=== PATIENT | female | born 1965 | race African-American/Black ===

== ENCOUNTER 2017-08-02 21:48 | Inpatient (IN) | payer OTHER ==
[2017-08-02] MEDS ORDERED: Labetalol HCl 100 MG/20 ML VIAL ONE (22:14)
--- NOTE | 2017-08-03 00:01 | NM ---
VENTILATION PERFUSION LUNG SCAN: Date: 08-02-17 Comparison: None. History: Chest pain, dyspnea. Assess for pulmonary embolism. Technique: Following the inhalation of 12 mCi Xenon 133 gas by facemask, ventilation imaging was obta ined. Perfusion imaging is obtained following the intravenous administration of 6 mCi Technetium 99M labelled MAA. FINDINGS: The ventilation imaging demonstrates normal wash in, equilibrium, and washout phase ventilation imagi ng. The perfusion images demonstrates subtle peripheral areas of decreased perfusion in the left perihila r region in the lateral aspect of the mid right lung zone. The area of decreased perfusion in the lef t perihilar region is likely vascular in nature. The area of decreased peripheral perfusion within th e right lung base laterally may represent a subsegmental mismatched defect. IMPRESSION: Low probability for PE. Possible small subsegmental perfusion defect in right lung base - otherwise u nremarkable. POS: [facility]
[2017-08-03 02:09] LABS: Troponin I 0.012 ng/mL (< 0.028)
[2017-08-03] MEDS ORDERED: hydrALAZINE 20 MG/ML VIAL SLOW IVP PRN (02:46)
[2017-08-03] MEDS ORDERED: Amlodipine 10 MG TAB PO SCH (02:46)
[2017-08-03] MEDS ORDERED: Ondansetron ODT 4 MG TAB PO PRN (02:46)
[2017-08-03] MEDS ORDERED: Acetaminophen 325 MG TAB PO PRN (02:46)
[2017-08-03 05:20] LABS: #Basophils 0.1 thou/uL (0.0-0.2); #Eosinphils 0.6 thou/uL (0.0-0.7); #Lymphocytes 3.4 thou/uL (1.20-3.40); #Monocytes 0.4 thou/uL (0.11-0.59); #Neutrophils 6.6 thou/uL (1.40-6.50); %Basophils 0.8 % (0.0-1.0); %Eosinophils 5.5 % (0.0-10.0); %Lymphocytes 30.6 % (21.0-51.0); %Monocytes 3.8 % (0.0-10.0); %Neutrophils 59.3 % (42.0-75.0); Hemoglobin 8.1 g/dL (12.0-16.0); Mean Corpuscular HGB CONC 33.4 g/dL (32.0-36.0); Mean Corpuscular Hemoglobin 29.2 pg (27.0-31.0); Mean Corpuscular Volume 87.3 fl (81.0-99.0); Mean Platelet Volume 8.1 fL (7.4-10.4); Platelet Count 133 thou/uL (130-400); RBC Distribution Width 14.1 % (11.5-14.5); Red Blood Cell (RBC) Count 2.78 mill/uL (4.20-5.40); White Blood Cell (WBC) Count 11.1 thou/uL (4.8-10.8)
[2017-08-03 05:29] LABS: ALT (SGPT) 77 U/L (8-55); AST (SGOT) 42 U/L (5-34); Albumin 3.6 g/dL (3.5-5.0); Alkaline Phosphatase 138 U/L (40-150); Anion Gap 16 mmol/L (10-20); BUN (Urea Nitrogen) 42 mg/dL (9.8-20.1); Bilirubin, Total 0.4 mg/dL (0.2-1.2); Calc. Creatinine Clearance 16 mL/min (70-130); Calcium 10.2 mg/dL (7.8-10.44); Carbon Dioxide 23 mmol/L (22-29); Cardiac Risk 7.1 (Less than 4.5); Chloride 104 mmol/L (98-107); Cholesterol 157 mg/dl (< 200 Desired); Estimated GFR-MDRD 11; Globulin 3.3 g/dL (2.4-3.5); Glucose 145 mg/dL (70-105); HDL Cholesterol 22 mg/dL (>60 Neg Risk); LDL Cholesterol, Calculated 97 mg/dL; Magnesium 2.1 mg/dL (1.6-2.6); Potassium 3.7 mmol/L (3.5-5.1); Protein, Total 6.9 g/dL (6.0-8.3); Sodium 139 mmol/L (136-145); Triglycerides 191 mg/dL (Less than 150)
--- NOTE | 2017-08-03 06:06 | HP ---
DATE OF ADMISSION: 08/03/2017 TIME OF SERVICE: PRIMARY CARE PHYSICIAN: Kavita Mata D.O. CHIEF COMPLAINT: Shortness of breath. HISTORY OF PRESENT ILLNESS: Ms. Toney is a 51-year-old -[place] female with history of hypert ension and chronic kidney disease stage 3-4, who presented to the emergency department on 08/02 for e valuation of shortness of breath. She states she had a coughing and phlegm production for 3-4 days and developed pain under her right b reast around her right side of her chest that was worse with deep inspiration and with coughing. She presented to the emergency department, was found to be hypoxic there. The records are 90% on room a ir, where I was told low 80s. On arrival to our unit, she was satting in the low 80s on room air. S he had an increased respiratory rate and was subsequently sent here for evaluation. On arrival here, she continued to have increased blood pressure as in [place]. They were concerned about a pulmonary embolus due to elevated D-dimer and was started on a heparin drip at the outside [facility] and continued here initially. VQ scan was obtained that was a low probability, so the heparin drip was stopped on her admission. She denies any fevers or chills, no nausea, vomiting, diarrhea, constipation. Appetite has been okay . Talking to better medical problems and medications, it is very clear that she takes her medicines may be 25% of the time and has had a known history of chronic kidney problems for at least the last 2 yea rs, has not done anything about it. PAST MEDICAL HISTORY: 1. Hypertension. 2. Chronic kidney disease stage 4. 3. Obesity. PAST SURGICAL HISTORY: , remotely. HOME MEDICATIONS: 1. Lisinopril 10 mg p.o. q.a.m. 2. Metoprolol tartrate 50 mg p.o. b.i.d. 3. Iron sulfate 325 mg during her cycles. ALLERGIES: NKDA. FAMILY HISTORY: Significant for mom with diabetes, hypertension, and son who is hypertensive. SOCIAL HISTORY: Negative for habits x2. She has about half a can of sweet snuff for week. 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 She takes her home medications may be 25% of the time. REVIEW OF SYSTEMS: A 10-point review of systems was performed, negative for all systems except that as per HPI. PHYSICAL EXAMINATION: VITAL SIGNS: Temperature at the outside facility 99.4, pulse 84, blood pressure 194/124 respiratory 18, satting 99% on 2 liters. Here and then at the outside facility, she is 98.3, pulse of 110, blood pressure 200/113, respiratory rate is satting 90% on room air. GENERAL: She is awake. She is alert. She is oriented x3. She is a well-developed, obese -A merican female, who appears to be in no acute distress and seems distracted and not really less than what we were saying. HEENT: Normocephalic and atraumatic. Pupils equal, round, react to light bilaterally, mucous membra jeanna are moist. She has no visible lesions. No thrush. NECK: Supple, without lymphadenopathy, JVD, or thyromegaly. LUNGS: Clear anteriorly. She has no wheezes, no rales, or rhonchi. She has good air with symmetric al chest excursion. CARDIOVASCULAR: She is normal cardiac and regular. Normal S1 and S2. No S3 or S4. I do not apprec iate murmurs. ABDOMEN: Obese. It is nontender, nondistended. She has no masses, organomegaly. No rebound, rigid ity, or guarding. EXTREMITIES: Show no cyanosis, no clubbing with trace bilateral lower extremity edema to just above the ankles. She has 1+ dorsalis pedis, and posterior tibial pulses bilaterally. SKIN: Warm, moist, well perfused. She has no rash or lesions. NEUROLOGIC: Cranial nerves II through XII are grossly intact. She has no focal neurologic deficits, 5/5 strength, and a normal speech pattern. MUSCULOSKELETAL: Normal to inspection. Her large joints are without inflammation. There is no palp able effusions. LABORATORY DATA: Sodium 142, potassium 3.8, chloride 104, bicarb 22, BUN 41, creatinine 5.09 from 3. 5 back 2 years ago, glucose of 98, and a calcium of 10.4. Liver functions showed an AST of 47, ALT of 88, but otherwise within normal limits. CBC showed a [facility] te count barely elevated at 11.4, hemoglobin 9.3, hematocrit of 27.3, and platelet count 155,000. RADIOGRAPHIC STUDIES: She had a chest x-ray showed no acute cardiopulmonary disease. VQ scan was low probability for pulmonary embolus. ASSESSMENT AND PLAN: 1. Hypertensive urgency: Blood pressures in the 200s to 190s over 110s to 120s. We will place in o bservation, will stay away from lisinopril due to kidney function. I will start her on amlodipine an d Coreg. We have p.r.n. hydralazine as needed. If she may need to be on hydralazine as well, I have consulted Nephrology for their assistance. 2. Chronic kidney disease stage 4. Creatinine is 5.09. Calculated GFR is around 11. I will follow up on Dr. Quiñones's recommendations. This is not a new finding. I have now ordered an ultrasound d ue to that. 3. Essential hypertension, unsure of this essential hypertension or renovascular, we will follow up on Nephrology recommendations. In the meantime, we will stay away from lisinopril, which she is not taking regularly anyways. 4. Iron deficiency anemia, chronic. The patient has been on iron sulfate kind of as needed. Hemogl obin is 9.3 with a hematocrit of 27.3. We will watch very closely. 5. History of medical noncompliance. The patient has not been going to doctors or taking her medici jeanna regularly. We will follow up on her response to the medicines we have ordered for her.
[2017-08-03 07:01] LABS: CKMB 0.3 ng/mL (0-6.6); Troponin I 0.014 ng/mL (< 0.028)
[2017-08-03] MEDS: Carvedilol 6.25 MG TAB PO SCH ×2 (09:53→16:47)
[2017-08-03] MEDS: Famotidine 20 MG TAB PO SCH (09:53)
--- NOTE | 2017-08-03 11:56 | PDOC.EVN ---
Event Note - Event Note Event Note: Pt admitted early this morning VS: Stable c/o some PE: Awake, alert CVS: S1S2 PRESENT, RRR, No murmur RS: No wheezing, no rhonchi, diminished at bases GI: Soft, nttp, no guarding PLATINUM SMITH: Awake, alert labs: Reviewed A/P: 1. HTN uncontrolled 2. Hypoxia 3. CKD stage 4 plan: bp improved neph consulted will consult pulmonary to evaluate patint, vq scan low probability for pe case d/w pt & CM
[2017-08-03] MEDS: HYDROcodone/Acetaminophen 5/325 mg Tablet PO PRN (13:30)
[2017-08-03 13:31] LABS: CKMB 0.3 ng/mL (0-6.6); Troponin I 0.031 ng/mL (< 0.028)
--- NOTE | 2017-08-03 13:46 | CON ---
DATE OF CONSULTATION: 08/03/2017 HISTORY: The patient is a 51-year-old female. We are being consulted regarding her difficulty breathing. The patient is a lifelong nonsmoker who about 3 days ago developed some right- sided chest pain, worse with deep breathing and coughing along with a left infraclavicular area pain and discomfort when she coughed and took a deep breath. She has noticed swelling in the right infrahilar area. She has not fallen down. 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 She had a chest x-ray taken in [place], [place], which was normal. She had a perfusion lung scan done over here because her renal function is poor, it showed no evidence of pulmonary emboli. She has not had any coughing or wheezing. No previous history of TB, no bronchial asthma. Prior to recent illness of 3 days, she says she could walk about a block without getting markedly short of breath. Now she can barely walk even 20 feet without getting dyspneic and weak. PAST MEDICAL HISTORY: Pertinent apparently for hypertension and renal disease. PAST SURGICAL HISTORY: Gallbladder, hysterectomy, . SOCIAL/FAMILY HISTORY: Family history is unremarkable. No alcohol or tobacco abuse. REVIEW OF SYSTEMS: Ten point negative. PHYSICAL EXAMINATION: GENERAL: She appears to be in no acute distress at rest. VITAL SIGNS: Her sats were low at 91 on 1 liter, temperature 98, pulse 80, blood pressure 140/89. CHEST: Reveals no wheezing or crackles. CARDIAC: Normal S1, S2. No gallops. ABDOMEN: Soft. No masses. LABORATORY: White count 11,000, H&H 8 and 24, platelet count 133. BUN and creatinine are 42 and 4.9. BNP 198. IMPRESSION: 1. Hypoxemia with normal chest x-ray, normal VQ scan. 2. Chronic renal failure. 3. Left infraclavicular soft tissue mass, unknown significance. PLAN: I am concerned about the management of her hypoxemia with a nonsmoker with normal chest x-ray, no evidence of pulmonary emboli. It is possible this may be due to fluid overload, though she clearly has no other symptoms of fluid overload. I will order an echo. Additionally, order PFT. Regarding the right chest wall mass may consider getting an opinion from Surgery to see whether this could be needled to get a biopsy, it appears suspicious. She has lost about 30 pounds. I will follow. consult note 70 minutes 50% direct pt care MARIA TERESA
--- NOTE | 2017-08-03 13:46 | CON ---
DATE OF CONSULTATION: 08/03/2017 CONSULTING PHYSICIAN: Dr. Julio Tapia. REASON FOR CONSULTATION: Chronic kidney disease. REASON FOR ADMISSION: Shortness of breath. HISTORY OF PRESENT ILLNESS: This is a 51-year-old female with history of hypertension, chronic kidney disease, who came to the hospital with the above complaints and found to have chronic kidney disease. The patient is aware of, but does not want to see a kidney doctor yet. She denies any nausea, vomiting, no shortness of breath or chest pain. She is feeling much better, no shortness of breath, no chest pain or palpitation. PAST MEDICAL HISTORY: Positive for hypertension, chronic kidney disease stage 4 , Obesity. PAST SURGICAL HISTORY: . HOME MEDICATIONS: Lisinopril, metoprolol, and iron sulfate. ALLERGIES: No known drug allergies. SOCIAL HISTORY: No smoking, alcohol or illicit drug abuse, uses snuff. FAMILY HISTORY: Positive for diabetes and hypertension. REVIEW OF SYSTEMS: The following complete review of systems was negative, unless otherwise mentioned in the HPI or below: Constitutional: Weight loss or gain, ability to conduct usual activities. Skin : Rash, itching. Eyes: Double vision, pain. ENT/Mouth: Nose bleeding, neck stiffness, pain, tenderness. Cardiovascular: Palpitations, dyspnea on exertion, orthopnea. Respiratory: Shortness of breath, wheezing, cough, hemoptysis, fever or night sweats. Gastrointestinal: Poor appetite, abdominal pain, heartburn, nausea, vomiting, constipation, or diarrhea. Genitourinary: Urgency, frequency, dysuria, nocturia. Musculoskeletal: Pain, swelling. Neurologic/Psychiatric: Anxiety, depression. Allergy/Immunologic: Skin rash, bleeding tendency. PHYSICAL EXAMINATION: GENERAL: This is a well-built -[place]id[place] female in no apparent distress. VITAL SIGNS: Temperature 98.6, pulse 94, respiratory rate 16, and blood pressure 143/84. Musculoskeletal : No tenderness, No edema HEENT: Atraumatic normocephalic Neck: Supple Cardiovascular: S1S2 heard, Rate and rhythm regular Respiratory: Clear to auscultation Gastrointestinal: Abdomen is soft Dermatologic : No skin rash Neurologic: Alert and awake and oriented X3 No focal neurologic deficits. Moving all the extremities. Psychiatric: Mood and affect normal LABORATORY DATA: Potassium is 3.7, BUN is 42, creatinine is 4.9. ASSESSMENT AND PLAN: 1. Acute kidney injury on chronic kidney disease stage 4-5. We will monitor, most likely from hypertension. 2. Hypertension. Blood pressure seems to be getting better. 3. We will check for proteinuria. We will check chronic kidney disease labs. 4. Anemia. Check iron studies and might need Epogen. 5. Edema, controlled. We will check. 6. Plan is to check chronic kidney disease labs, we will follow. Thank you for the consult. MARIA TERESA
[2017-08-03 14:44] LABS: Creatinine, Urine 49.91 mg/dL (47-110)
--- NOTE | 2017-08-03 15:54 | CT ---
CT OF THE THORAX WITHOUT IV CONTRAST: Date: 08/03/17 INDICATION: Chest wall mass with pain and palpable abnormality left upper chest for 2-3 days. Hurts when patient coughs. FINDINGS: There is a lobulated soft tissue mass seen within the upper inner aspect of the left breast measuring 1.7 cm. There is an enlarged lymph node measuring 1.7 cm. There is mild scattered emphysema. There is a 6.0 mm pulmonary nodule within the left lower lobe on i mage 46 of series 3 and image 81 of series 601. No additional suspicious pulmonary nodule is evident. There are patchy areas of lucency involving the ribs, clavicles, scapula and thoracolumbar spine susp icious for osseous metastatic disease. No definite pathologic fracture is evident. IMPRESSION: 1. Left breast mass with left breast axillary lymphadenopathy suspicious for left breast malignancy with regional lymph node spread. Diagnostic mammogram with ultrasound is recommended for further zeinab acterization. 2. Findings suspicious for diffuse osseous metastatic disease involving thoracolumbar spine, ribs, s capula, and clavicles. 3. Small pulmonary nodule within the left lower lobe measuring up to 6.0 mm. This is nonspecific. Pu lmonary metastatic disease not excluded. 4. Emphysema. CODE T. POS: [facility]
[2017-08-03 19:37] LABS: CKMB 0.3 ng/mL (0-6.6); Troponin I Less than 0.010 ng/mL (< 0.028)
[2017-08-04] MEDS: HYDROcodone/Acetaminophen 5/325 mg Tablet PO PRN (04:10)
[2017-08-04 04:54] LABS: #Eosinphils 0.6 thou/uL (0.0-0.7); #Lymphocytes 3.1 thou/uL (1.20-3.40); #Monocytes 0.9 thou/uL (0.11-0.59); #Neutrophils 6.8 thou/uL (1.40-6.50); %Basophils 0.3 % (0.0-1.0); %Eosinophils 5.6 % (0.0-10.0); %Monocytes 7.7 % (0.0-10.0); %Neutrophils 59.4 % (42.0-75.0); Hemoglobin 8.7 g/dL (12.0-16.0); Mean Corpuscular HGB CONC 34.2 g/dL (32.0-36.0); Mean Corpuscular Hemoglobin 29.4 pg (27.0-31.0); Mean Corpuscular Volume 86.2 fl (81.0-99.0); Mean Platelet Volume 7.8 fL (7.4-10.4); Platelet Count 135 thou/uL (130-400); RBC Distribution Width 13.9 % (11.5-14.5); Red Blood Cell (RBC) Count 2.95 mill/uL (4.20-5.40); White Blood Cell (WBC) Count 11.5 thou/uL (4.8-10.8)
[2017-08-04 05:03] LABS: ALT (SGPT) 84 U/L (8-55); AST (SGOT) 48 U/L (5-34); Albumin 3.9 g/dL (3.5-5.0); Alkaline Phosphatase 150 U/L (40-150); Anion Gap 16 mmol/L (10-20); BUN (Urea Nitrogen) 42 mg/dL (9.8-20.1); Bilirubin, Total 0.6 mg/dL (0.2-1.2); Calc. Creatinine Clearance 16 mL/min (70-130); Carbon Dioxide 19 mmol/L (22-29); Chloride 106 mmol/L (98-107); Estimated GFR-MDRD 11; Globulin 3.9 g/dL (2.4-3.5); Glucose 93 mg/dL (70-105); Magnesium 2.3 mg/dL (1.6-2.6); Potassium 4.4 mmol/L (3.5-5.1); Protein, Total 7.8 g/dL (6.0-8.3); Sodium 137 mmol/L (136-145)
[2017-08-04 05:04] LABS: Iron 77 ug/dL (50-170); Iron Binding Capacity, Total 318 mcg/dL (265-497)
[2017-08-04 05:20] LABS: Ferritin 118.19 ng/mL (10-291); Vitamin D, 25 Hydroxy 11.7 ng/ml (> 30.0)
--- NOTE | 2017-08-04 06:39 | PRG ---
DATE OF SERVICE: 08/04/2017 This morning she is awake, alert, responsive. PHYSICAL EXAMINATION: VITAL SIGNS: Blood pressure 170/100, sats are still low at 92, respirations 20 , temperature 98. CHEST: Chest revealed decreased breath sounds, no wheezing. CARDIAC: Normal S1-S2. No gallops. ABDOMEN: Soft, no masses. LABORATORY: Creatinine is 5, white count 11,000, H&H 8 and 24, bun 35. CT of chest showed multiple abnormalities, to note left breast mass with a left breast axillary adenopathy. Findings suggestive of diffuse metastatic disease. Small pulmonary nodule 6 mm of unknown significance. I am still concerned about hypoxemia. I did not see much on the CT to account for hypoxemia, but clearly concern is of this breast mass. Awaiting input from Surgery. She probably may need bilateral mammograms, tissue diagnosis. Pulmonary-alberto, continue DVT prophylaxis. Supportive care, control blood pressure. Pulmonary will follow. MARIA TERESA
[2017-08-04] MEDS: Famotidine 20 MG TAB PO SCH (08:32)
[2017-08-04] MEDS: Amlodipine 10 MG TAB PO SCH (08:32)
[2017-08-04] MEDS: Heparin 5,000 UNITS/ML VIAL SC SCH ×2 (08:32→20:33)
[2017-08-04] MEDS: Carvedilol 6.25 MG TAB PO SCH ×2 (08:33→17:04)
--- NOTE | 2017-08-04 09:14 | PDOC.PN ---
- Subjective Encounter Start Date: 08/04/17 Encounter Start Time: 09:00 Subjective: f/u for HTN urgency and chest/breast lesions concerning for metastatic -: breast ca. Pt feels ok currently, mild SOB with ambulating. - Objective Resuscitation Status: Resuscitation Status FULL:Full Resuscitation MAR Reviewed: Yes Vital Signs & Weight: Vital Signs (12 hours) Temp Pulse Resp BP BP Pulse Ox 08/04/17 07:52 97.6 F 92 16 165/89 H 96 08/04/17 04:47 99 140/78 93 L 08/04/17 04:06 98.8 F 104 H 20 170/121 H 77 L 08/04/17 04:01 88 170/121 H 08/03/17 23:12 99.2 F 88 20 145/83 H 92 L Weight Admit Weight 174 lb 8 oz Weight 171 lb 14.4 oz I&O: 08/03/17 08/04/17 08/05/17 06:59 06:59 06:59 Intake Total 200 840 Output Total 200 Balance 200 640 Result Diagrams: 08/04/17 04:11 08/04/17 04:11 EKG Reviewed by me: Yes (Tele - SR in 90's) Phys Exam - Physical Examination Constitutional: NAD HEENT: PERRLA, oral pharynx no lesions Neck: no JVD, supple Respiratory: no wheezing, clear to auscultation bilateral Cardiovascular: RRR Gastrointestinal: soft, non-tender, no distention, positive bowel sounds Musculoskeletal: no edema, pulses present Neurological: normal sensation, moves all 4 limbs Psychiatric: A&O x 3 Skin: normal turgor, cap refill <2 seconds Dx/Plan (1) Hypertensive urgency Code(s): I16.0 - HYPERTENSIVE URGENCY Status: Acute Comment: Resolved, increase Coreg 12.5mg BID, continue Norvasc 10mg daily (2) Mass of breast, left Code(s): N63.20 - UNSPECIFIED LUMP IN THE LEFT BREAST, UNSPECIFIED QUADRANT Status: Acute Comment: Await bx per gen surgery, concern for malignancy with associated axillary adenopathy (3) Chronic kidney disease (CKD), stage IV (severe) Code(s): N18.4 - CHRONIC KIDNEY DISEASE, STAGE 4 (SEVERE) Status: Chronic Comment: Renal service following, renal adjustment to all meds, avoid nephrotoxic meds and contrast media (4) Anemia in CKD (chronic kidney disease) Code(s): N18.9 - CHRONIC KIDNEY DISEASE, UNSPECIFIED; D63.1 - ANEMIA IN CHRONIC KIDNEY DISEASE Status: Chronic Comment: Stable, follow serial trend, no active blood loss - Plan plan discussed w/ family, out of bed/ambulate, DVT proph w/SCDs Continue supportive mgmt -: Increase Coreg 12.5mg BID -: Continue Norvasc 10mg daily -: Gen surgery for bx today -: AM lab: BMP, CBC * .
--- NOTE | 2017-08-04 10:27 | CON ---
DATE OF CONSULTATION: 08/04/2017 CHIEF COMPLAINT: Breast mass. HISTORY OF PRESENT ILLNESS: This is a 51-year-old female admitted with dyspnea and chest pain. Dr. Olmedo saw her and ordered a CAT scan of her chest. This has revealed a left breast mass and likely le ft axillary lymph node that is enlarged. The patient notes previous breast exams by her physician, inderjit garcia no previous history of mammogram. She notes no family history of breast cancer. She denies any b reast skin changes, nipple inversion, and nipple discharge. PAST MEDICAL HISTORY: Includes hypertension, chronic renal failure, and obesity. PAST SURGICAL HISTORY: . MEDICINES TAKEN DAILY: Lisinopril, metoprolol, and iron. ALLERGIES: No known drug allergies. 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 Uses tobacco snuff, but no smoking or alcohol. REVIEW OF SYSTEMS: Otherwise, negative. PHYSICAL EXAMINATION: VITAL SIGNS: Blood pressure 165/89, pulse 92, respirations 16. She is afebrile. HEENT: Sclerae are anicteric. Oropharynx clear. NECK: There is no supraclavicular lymphadenopathy. CHEST: Clear to auscultation. HEART: Regular rate and rhythm without murmur. BREASTS: There is an upper inner quadrant of left breast mass that is 2 x 3 cm. Does not feel fixed to chest wall. There is left axillary lymphadenopathy. Right breast and right axilla without abnorm ality. No skin changes or nipple inversion. ABDOMEN: Soft, nontender, nondistended. No ischemia or edema to extremities. IMAGING DATA: Chest CT shows left breast mass, left axillary lymphadenopathy and also shows question for diffuse osseous metastatic disease and left 6 cm pulmonary nodule. ASSESSMENT: 1. Left breast mass, likely breast cancer, metastasized to at least to left axilla. If not, diffuse osseous spread. 2. Chronic renal insufficiency. 3. Chronic renal failure. 4. Hypertension. PLAN: I have discussed with Radiology to perform ultrasound guided biopsy of the left axillary lymph node to confirm malignancy and spread to the regional lymph node. I could also biopsy the breast ma ss with a core needle at the bedside as well after biopsy getting an oncologic input.
--- NOTE | 2017-08-04 13:39 | NM ---
WHOLE BODY BONE SCAN: HISTORY: Chest wall mass. Left axillary lymphadenopathy. COMPARISON: None. CORRELATION: CT chest dated 08/03/2017. RADIOPHARMACEUTICAL: Technetium 99m MDP 33 millicuries injected intravenously. FINDINGS: There are foci of increased uptake in the right superior acetabular region, pubic bones, right ischia l tuberosity, right proximal femur, and the T9 vertebra. There is increased uptake due to degenerative change in the shoulders, elbows, wrists, knees, ankles, and feet. There is poor visualization of the kidneys and bladder activity. IMPRESSION: Osseous metastatic disease. POS: [facility]
[2017-08-04 14:06] LABS: ANA Symphony (Qualitative) Negative (Negative); ANA Symphony (Quantitative) 0.1 Ratio (<0.7 Negative); dsDNA IgG Antibody Less than 0.5 IU/mL (<10 Negative)
--- NOTE | 2017-08-04 17:55 | CON ---
DATE OF CONSULTATION: 08/04/2017 REASON FOR CONSULTATION: Breast mass. HISTORY OF PRESENT ILLNESS: Ms. Toney is a very pleasant 51-year-old -[place] female who pres ented to the emergency room for acute shortness of breath. She had a cough with pain under her right breast. In the emergency room, she was 90% on room air and dropped to the 80 percentile with moveme nt. She had a CT angio of her chest to rule out pulmonary embolism. It was negative; however, a 1.7 cm lobulated soft tissue mass was noted in the upper inner aspect of the left breast. There was als o an enlarged axillary lymph node. There were patchy areas of lucency in the ribs, clavicle, scapula and lumbar spine worrisome for metastatic disease. She underwent a bone scan which confirmed diffus e bone metastasis. Her calcium was mildly elevated at admission. She has a history of poorly-contro lled hypertension and chronic kidney disease. Her creatinine was elevated at 5 with a GFR of 11. He r AST and ALT were also mildly elevated. The patient has never had a mammogram. She does admit to f inding this nodule approximately 3-4 months ago, but not thinking much of it. Her family history inc ludes a grandmother and aunts with breast cancer in their 60s and 70s. Her mother has no history of breast cancer. There is no history of ovarian or cervical cancer that she is aware of. PAST MEDICAL HISTORY: 1. Hypertension. 2. Chronic kidney disease. PAST SURGICAL HISTORY: . ALLERGIES: No known drug allergies. HOME MEDICATIONS: 1. Lisinopril 10 mg daily. 2. Metoprolol tartrate 50 mg b.i.d. FAMILY HISTORY: Per HPI. SOCIAL HISTORY: Two grown children. Denies any alcohol, tobacco or illicit drug use. She does admi t to half a can of sweet snuff. 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 REVIEW OF SYSTEMS: Constitutional: No fever, chills, weight loss or gain. Positive for night sweat s. Eyes: No blurred or double vision. ENT: No pain, hoarseness, sore throat, or dysphagia. Cardi ovascular: No chest pain, palpitations or syncope. Respiratory: Positive shortness of breath and d yspnea on exertion. Gastrointestinal: No nausea, vomiting, diarrhea, constipation or abdominal pain . Genitourinary: No dysuria or hematuria. Musculoskeletal: Positive for pain into her right breas t with inspiration. Hematologic: No bleeding, bruising or clotting. Neurologic: Denies weakness, headache, numbness, tingling or seizure activity. Psychiatric: No anxiety or depression. PHYSICAL EXAMINATION: VITAL SIGNS: Temperature is 98.7, pulse is 93, respiratory rate 16, BP is 170/90. She is 94% on 2 l iters. GENERAL: Well-developed, well-nourished female in no acute distress. HEENT: Normocephalic, atraumatic. Pupils are equal and reactive to light. NECK: Supple. CARDIOVASCULAR: Regular rate and rhythm. LUNGS: Clear. ABDOMEN: Tender in the right upper quadrant to palpation. Bowel sounds are positive. EXTREMITIES: No clubbing, cyanosis or edema. SKIN: No rash. BREASTS: She has a palpable nodule in the upper left breast. No Peau d'orange skin changes and some findings in the right breast. NEUROLOGIC: Nonfocal. PSYCHIATRIC: The patient is alert and oriented and appropriate. PERTINENT LABORATORY AND X-RAYS: Current WBCs 11.5, hemoglobin 8.5, hematocrit 25.4, platelet count is 135,000, 60% neutrophils, 27% lymphocytes. PT is 14.0, INR is 1.1, PTT is 30.3. Sodium is 137, p otassium 4.4, chloride 106, CO2 is 19, BUN is 42, creatinine 5.06, calcium is 11, iron is 77. TIBC i s 318, magnesium 2.3, total bilirubin is 0.6, AST is 48, ALT is 84, alkaline phosphatase is 150, ferr itin is 118. Serum total protein 7.8, albumin 3.9, globulin 3.9. BNP was 199.8. PTH was 231. Urin e is negative for bacteria. ASSESSMENT: 1. Left breast mass with axillary lymphadenopathy. 2. Diffuse bone metastatic disease. 3. Hypercalcemia. 4. Chronic kidney disease 4. 5. Acute dyspnea. 6. Anemia. DISCUSSION: The patient's hypoxia is being managed by Pulmonary. Dr. Murguia has been consulted for a tissue biopsy of the left breast for tissue diagnosis. Dr. Quiñones is managing her hypertension a nd kidney function. We would like an abdominal CT to rule out liver mets. However, patient cannot t timbo contrast at this time. We will have the radiologist review the CT angio for his input as the nigel er was not mentioned, but she is diffusely tender in that region. She will follow up in the outpatie nt setting to discuss results of the biopsy and she will need chemotherapy. There is no significant pain in her bones, so she will not need radiation at this time. Thank you for the consult.
--- NOTE | 2017-08-04 19:08 | PRG ---
DATE OF SERVICE: 08/04/2017 SUBJECTIVE: Patient was seen and examined at bedside and overnight events noted. Patient denies any shortness of breath or chest pain or palpitation. No history of nausea or vomitin g or diarrhea or fever or chills or cramps. OBJECTIVE: GENERAL: This is a well-built female, in no apparent distress. VITAL SIGNS: Temperature 98.2, pulse 80, respiratory rate 20, blood pressure 118/72. HEENT: Atraumatic, normocephalic. Oral mucosa is moist NECK: Supple. CARDIOVASCULAR: S1 and S2 heard. Rate and rhythm regular. RESPIRATORY: Clear to auscultation. GASTROINTESTINAL: Abdomen is soft. MUSCULOSKELETAL: No tenderness. No edema. DERMATOLOGIC: No skin rash. NEUROLOGIC: Alert and awake and oriented X3, No focal neurologic deficits. Moving all the extremitie s. PSYCHIATRIC: Mood and affect normal. LABORATORY DATA: Potassium is 4.4, BUN 42, creatinine 5.07. ASSESSMENT AND PLAN: 1. Chronic kidney disease stage 4-5, renal function is stable, no intervention needed, monitor and c ontrol blood pressure. 2. Hypertension, seems to be stable. 3. Non-nephrotic proteinuria. 4. Anemia. 5. Vitamin D deficiency. 6. Secondary hyperparathyroidism. 7. Edema. 8. Breast mass with possible metastasis. 9. Prognosis is guarded. No acute indication for dialysis. We will need to monitor and control of blood pressure. We will follow.
[2017-08-04 22:36] VITALS: BMI 31.4
[2017-08-05 05:50] LABS: Anion Gap 14 mmol/L (10-20); BUN (Urea Nitrogen) 42 mg/dL (9.8-20.1); Calc. Creatinine Clearance 15 mL/min (70-130); Calcium 10.6 mg/dL (7.8-10.44); Carbon Dioxide 20 mmol/L (22-29); Chloride 107 mmol/L (98-107); Estimated GFR-MDRD 10; Glucose 93 mg/dL (70-105); Potassium 4.3 mmol/L (3.5-5.1); Sodium 137 mmol/L (136-145)
[2017-08-05 06:09] LABS: Band 6 % (5-11); Eosinophils 1 % (0-10); Hemoglobin 8.8 g/dL (12.0-16.0); Lymphocytes 23 % (21-51); MDiff Complete? YES; Mean Corpuscular HGB CONC 33.5 g/dL (32.0-36.0); Mean Corpuscular Hemoglobin 29.1 pg (27.0-31.0); Mean Corpuscular Volume 86.8 fl (81.0-99.0); Mean Platelet Volume 8.1 fL (7.4-10.4); Metamyelocyte 6 % (0-0); Monocytes 9 % (0-10); Myelocyte 4 % (0-0); Neutrophil 51 % (42-75); Nucleated RBC 1 % (0); PLT Morphology Comment Appears Decreased; Platelet Count 124 thou/uL (130-400); RBC Distribution Width 14.1 % (11.5-14.5); RBC Morphology Normal; Red Blood Cell (RBC) Count 3.01 mill/uL (4.20-5.40); White Blood Cell (WBC) Count 11.6 thou/uL (4.8-10.8)
[2017-08-05] MEDS: Amlodipine 10 MG TAB PO SCH (10:01)
[2017-08-05] MEDS: Famotidine 20 MG TAB PO SCH (10:02)
[2017-08-05] MEDS: Heparin 5,000 UNITS/ML VIAL SC SCH ×2 (10:03→20:53)
[2017-08-05] MEDS: Carvedilol 6.25 MG TAB PO SCH ×2 (10:03→17:26)
--- NOTE | 2017-08-05 10:25 | PRG ---
DATE OF SERVICE: 08/05/2017 SUBJECTIVE: The patient is doing reasonably well except she desats when she walks. PHYSICAL EXAMINATION: VITAL SIGNS: Temperature is 98.5, pulse 91, respirations 18, O2 sats 98% on room air and desats in t he 70s when she walks. HEENT: Unremarkable. NECK: No JVD. CHEST: Clear without wheezing. CARDIAC: S1 and S2 regular. ABDOMEN: Soft. EXTREMITIES: No edema. LABORATORY DATA: White blood cell count 11.6, hematocrit 26.1, platelet count 124. Sodium 137, pota ssium 4.3, chloride 107, CO2 20, BUN 42, creatinine 5.3, and glucose 93. ASSESSMENT: 1. Stable pulmonary status aside from exercise induced hypoxemia. 2. Chest wall mass. 3. Acute on chronic renal failure. PLAN: 1. Await biopsy results. 2. May end up needing supplemental oxygen for home. 3. PFT is scheduled for today.
--- NOTE | 2017-08-05 10:59 | PRG ---
DATE OF SERVICE: 08/05/2017 SUBJECTIVE: Patient was seen and examined at bedside and overnight events noted. Patient denies any shortness of breath or chest pain or palpitation. No history of nausea or vomiting or diarrhea or f ever or chills or cramps. OBJECTIVE: GENERAL: This is a well-built female in no apparent distress. VITAL SIGNS: Temperature 98.5, pulse 91, respiratory 18, blood pressure 113/69. HEENT: Atraumatic, normocephalic. Oral mucosa is moist. NECK: Supple. CARDIOVASCULAR: S1, S2 heard. Rate and rhythm regular. RESPIRATORY: Clear to auscultation. GASTROINTESTINAL: Abdomen is soft. MUSCULOSKELETAL: No tenderness, no edema. DERMATOLOGIC: No skin rash. NEUROLOGIC: Alert and awake and oriented x3. No focal neurologic deficits. Moving all the extremit ies. PSYCHIATRIC: Mood and affect normal. LABORATORY DATA: Potassium is 4.3, BUN is 42, creatinine is 5.3, hemoglobin is 8.8. ASSESSMENT AND PLAN: 1. Chronic kidney disease stage 5, renal function has a slight drop of creatinine and no acute indic ation for dialysis. We will continue to monitor. The patient was counseled regarding the need for d ialysis in the near future, but patient is having malignancy workup and might need renal replacement to undergo chemotherapy. We will await biopsy results and discuss with other consultants. 2. Hypertension seems to be stable. 3. Anemia of chronic disease, on Epogen per Hematology/Oncology. 4. Mild proteinuria, non-nephrotic. 5. Vitamin D deficiency. We will hold vitamin D supplements, given the hypercalcemia. 6. Hypercalcemia, most likely related to malignancy. 7. Secondary hyperparathyroidism. 8. Edema, controlled. 9. Breast mass with possible metastasis and awaiting pathology. No acute indication for dialysis. We will continue to monitor.
--- NOTE | 2017-08-05 13:55 | ULT ---
ULTRASOUND GUIDED LEFT AXILLARY LYMPHADENOPATHY CORE BIOPSY. INDICATION: Enlarged left axillary lymph node and left breast mass, concern for regional lymph node spread of met astatic disease. TECHNIQUE: Preprocedure ultrasound demonstrated the enlarged lymph node within the left axillary region. Inform ed consent was obtained. A site overlying the left axillary lymph node was prepped and draped in the usual sterile fashion. Buffered 1% Lidocaine was administered to the overlying subcutaneous tissues . A small incision was made. A 20-gauge MediaCoreno core biopsy gun was then guided down to the enlarged lymph node within the left axillary region. Four separate core samples were obtained of the enlarged left axillary lymph node. The core samples were submitted in formalin solution to the pathology dep artment. Pressure was held at the biopsy site until hemostasis was obtained. The patient tolerated the procedure without difficulty. IMPRESSION: Successful ultrasound-guided left axillary lymph node core biopsy. POS: [facility]
[2017-08-05 15:26] LABS: Kappa Lambda Light Chain Ratio 1.34 (0.26-1.65); Lambda Light Chain 68.9 mg/L (5.7-26.3)
--- NOTE | 2017-08-05 15:46 | PDOC.PN ---
- Subjective Encounter Start Date: 08/05/17 Encounter Start Time: 15:40 Subjective: f/u for hypoxia, dyspnea and breast mass s/p bx 08/05/17. Final path -: pending and currently requiring O2 supplementation. - Objective Resuscitation Status: Resuscitation Status FULL:Full Resuscitation Vital Signs & Weight: Vital Signs (12 hours) Temp Pulse Resp BP BP Pulse Ox 08/05/17 10:03 113/69 08/05/17 10:01 91 113/69 08/05/17 07:54 98.5 F 91 98 Weight Admit Weight 174 lb 8 oz Weight 171 lb 15.369 oz I&O: 08/04/17 08/05/17 08/06/17 06:59 06:59 06:59 Intake Total 840 960 Output Total 200 Balance 640 960 Result Diagrams: 08/05/17 05:03 08/05/17 05:03 Additional Labs: Laboratory Tests 08/03/17 08/03/17 08/04/17 04:33 04:33 04:11 WBC 11.1 H Hgb 8.1 L Creatinine 4.97 H 5.06 H Calcium 11.0 H 25-OH Vitamin D Total PTH Intact 08/04/17 08/04/17 08/04/17 04:11 04:11 04:11 WBC 11.5 H Hgb 8.7 L Creatinine Calcium 25-OH Vitamin D Total 11.7 L PTH Intact 231.4 H Phys Exam - Physical Examination Constitutional: NAD HEENT: PERRLA, oral pharynx no lesions Neck: no JVD, supple Respiratory: no wheezing, clear to auscultation bilateral Cardiovascular: RRR Gastrointestinal: soft, non-tender, no distention, positive bowel sounds Musculoskeletal: no edema, pulses present Neurological: normal sensation, moves all 4 limbs Psychiatric: A&O x 3 Skin: normal turgor, cap refill <2 seconds Dx/Plan (1) Hypertensive urgency Code(s): I16.0 - HYPERTENSIVE URGENCY Status: Acute Comment: Resolved, increase Coreg 12.5mg BID, continue Norvasc 10mg daily (2) Mass of breast, left Code(s): N63.20 - UNSPECIFIED LUMP IN THE LEFT BREAST, UNSPECIFIED QUADRANT Status: Acute Comment: Await bx per gen surgery, concern for malignancy with associated axillary adenopathy (3) Chronic kidney disease (CKD), stage IV (severe) Code(s): N18.4 - CHRONIC KIDNEY DISEASE, STAGE 4 (SEVERE) Status: Chronic Comment: Renal service following, renal adjustment to all meds, avoid nephrotoxic meds and contrast media (4) Anemia in CKD (chronic kidney disease) Code(s): N18.9 - CHRONIC KIDNEY DISEASE, UNSPECIFIED; D63.1 - ANEMIA IN CHRONIC KIDNEY DISEASE Status: Chronic Comment: Stable, follow serial trend, no active blood loss (5) Hypoxemia Code(s): R09.02 - HYPOXEMIA Status: Acute Comment: ? subacute, continue O2 supplementation, arrange for home O2, trial Dulera 2 puffs BID - Plan plan discussed w/ family, psychologist social, respiratory therapy, out of bed/ ambulate, DVT proph w/SCDs Stable overall -: Continue O2 and likely setup for home -: Start Dulera 2 puffs BID -: OOB/ambulate -: Await pathology from L axillary lymph node bx * Likely home in am with Oncology f/u as outpt
[2017-08-05] MEDS: Mometasone/Formoterol 120 PUFF INHALER INH SCH (19:16)
[2017-08-05] MEDS: HYDROcodone/Acetaminophen 5/325 mg Tablet PO PRN (19:24)
[2017-08-06 07:45] VITALS: TEMP 99.3
[2017-08-06] MEDS: Carvedilol 6.25 MG TAB PO SCH (09:02)
[2017-08-06] MEDS: Amlodipine 10 MG TAB PO SCH (09:03)
[2017-08-06] MEDS: Famotidine 20 MG TAB PO SCH (09:03)
[2017-08-06 09:20] LABS: A/G Ratio 0.8 (0.7-1.7); Albumin 3.3 g/dL (2.9-4.4); Alpha 1 0.4 g/dL (0.0-0.4); Alpha 2 0.7 g/dL (0.4-1.0); Beta 1.5 g/dL (0.7-1.3); Gamma 1.4 g/dL (0.4-1.8); Globulin, Total 3.9 g/dL (2.2-3.9); M-Spike 0.5 g/dL (Not Observed)
[2017-08-06 09:54] LABS: Anion Gap 13 mmol/L (10-20); BUN (Urea Nitrogen) 46 mg/dL (9.8-20.1); Calc. Creatinine Clearance 14 mL/min (70-130); Calcium 10.4 mg/dL (7.8-10.44); Carbon Dioxide 20 mmol/L (22-29); Chloride 105 mmol/L (98-107); Estimated GFR-MDRD 9; Glucose 109 mg/dL (70-105); Potassium 4.1 mmol/L (3.5-5.1); Sodium 134 mmol/L (136-145)
[2017-08-06] MEDS: HYDROcodone/Acetaminophen 5/325 mg Tablet PO PRN (11:11)
[2017-08-06] MEDS: Heparin 5,000 UNITS/ML VIAL SC SCH (11:13)
[2017-08-06] MEDS: Mometasone/Formoterol 120 PUFF INHALER INH SCH (11:22)
--- NOTE | 2017-08-06 12:53 | PRG ---
DATE OF SERVICE: 08/06/2017 SUBJECTIVE: The patient is awake and alert and is in no distress on the vwyr-ey-gtic visit today in her room. PHYSICAL EXAMINATION: VITAL SIGNS: O2 sat is 84% on room air at rest, present 94% on 2 liters nasal cannula at rest. She also has exercise desaturation to 84% on room air while walking, which improved to 95% on 2 liters. Otherwise, temperature 99.3, pulse 120/80, respiratory rate 20. HEENT: Unremarkable. NECK: No JVD. LUNGS: She has some crackles in both bases. CARDIAC: S1 and S2 regular. ABDOMEN: Soft. EXTREMITIES: Trace edema. LABORATORY DATA: Sodium 134, potassium 4.1, chloride 105, CO2 of 20, BUN 46, creatinine 5.7, glucose 109. PFTs show an FEV1 of 2.28 liters which is 101% predicted and FVC of 2.77 liters which is 92% predicte d. DLCO and TLC are not accurate because the patient was on oxygen during the test. Maybe some comp onent of chronic obstructive pulmonary disease, but it is difficult to tell at this time. ASSESSMENT: 1. Congestive heart failure with hypoxemia. 2. Question of concurrent chronic obstructive pulmonary disease. 3. Chest wall mass. 4. Acute on chronic renal failure. PLAN: I will try to set her up for supplemental oxygen at home. She will need to follow up with Dr. Olmedo as an outpatient, supplemental oxygen will be prescribed, 2 liters nasal cannula 24 hours daily via concentrator and nasal cannula.
[2017-08-06 13:06] VITALS: BP 100/57
--- NOTE | 2017-08-06 13:30 | DIS ---
DATE OF ADMISSION: 08/03/2017 DATE OF DISCHARGE: 08/06/2017 DISCHARGE DIAGNOSES: 1. Hypertensive urgency, resolved. 2. Chronic kidney disease, stage 5. 3. Left breast mass concerning for malignancy with metastatic process, likely breast carcinoma. 4. Anemia secondary to chronic kidney disease. 5. Question of chronic obstructive pulmonary disease with hypoxemia, requiring oxygen at 2 liters pe r minute by nasal cannula. 6. Vitamin D deficiency. 7. Secondary hyperparathyroidism secondary to chronic kidney disease. CONSULTATIONS: Medical Oncology Service. Dr. Quiñones with Nephrology Service. Dr. Olmedo and Dusty with Pulmonology Service. PERTINENT LABORATORY AND X-RAY FINDINGS: Creatinine ranged between 4.97-5.73 with estimated GFR rang ing between 9-11, calcium ranged between 10.2-11.0. Magnesium level ranged between 2.1-2.3, serum ir on level 77, TIBC 318, ferritin 119, AST ranged between 42-48. ALT ranged between 77-84. Total chol esterol 157, triglycerides 191, HDL 22, LDL 97, 25-hydroxyvitamin D total 11.7. PTH intact 231. CBC showed a white blood cell count ranging between 11.1-11.6. Hemoglobin ranged between 8.1-8.8. Vent ilation perfusion study dated 08/02/2017 showed low probability for pulmonary embolus. A 2D transtho racic echocardiogram dated 08/03/2017 showed ejection fraction of 55%-60%. Mild to moderate concentr ic left ventricular hypertrophy. CT of the chest dated 08/03/2017 showed left breast mass with axill james adenopathy suspicious for malignancy. Diffuse osseous metastatic process involving the thoracolu mbar spine, ribs, scapula and clavicles. Emphysematous changes bilaterally. Bone scan dated 018 showed osseous metastatic process involving the right superior acetabular region, pubic bones, ri ght tuberosity, right proximal femur and T9 vertebra. HOSPITAL COURSE: The patient was admitted to the medical oncology unit after initially presenting wi th shortness of breath. The patient underwent extensive evaluation and initial exam related to suspi cion for pulmonary embolus. Ventilation perfusion study was performed due to severe chronic kidney d isease stage 4-5 with negative results. The patient was noted hypoxemic and continued on oxygen supp lementation throughout her hospital course and evaluated by the Pulmonology Service. The patient was given bronchodilator therapy as well as oxygen supplementation and overall clinically stabilized. T he patient also had concomitant hypertensive urgency initially with blood pressures in the 200/110. The patient was given IV hydralazine as well as amlodipine and Coreg with overall improvement in bloo d pressure trend by the time of discharge. The patient was noted with severe chronic kidney disease as stated previously evaluated by the Nephrology Service. The patient was not deemed an appropriate candidate for acute hemodialysis; however, likely will need hemodialysis in the near future. Due to patient's hypoxemia and concern for pulmonary embolus, CT was performed of the chest showing a left b reast mass with questionable osseous metastatic process. The patient underwent extensive evaluation including ultrasound-guided biopsy of left axillary lymph nodes with final pathology pending. Medica l Oncology Service was consulted after concern for malignant process with recommendations for outpati ent followup and review of pathology results. A bone scan was performed as stated previously showing a likely metastatic process concerning for breast cancer. The patient overall remained clinically s table, ambulating without assistance or difficulty, tolerating regular oral intake, and ready for dis charge on 08/06/2017. DISCHARGE MEDICATIONS: 1. Norvasc 10 mg 1 tab p.o. daily. 2. Metoprolol tartrate 50 mg p.o. b.i.d. 3. Dulera 200/5 mcg 2 puffs inhaled b.i.d. FOLLOWUP: The patient may follow up with her primary care provider, Dr. Kavita Mata within 7 day s. The patient will follow up with Medical Oncology service Dr. Coronado within 7 days of discharge. The patient will follow up with Dr. Quiñones with Nephrology Service and call his office for appointm ent time and date. CONDITION ON DISCHARGE: Fair. ACTIVITY: ad tristin. DIET: Heart healthy. CODE STATUS: FULL. DISPOSITION: Home on 08/06/2017. Total time preparing in coordinating discharge was 35 minutes.
--- NOTE | 2017-08-07 07:37 | PRG ---
DATE OF SERVICE: 08/06/2017 SUBJECTIVE: Patient was seen and examined at bedside and overnight events noted. Patient denies any shortness of breath or chest pain or palpitation. No history of nausea or vomiting or diarrhea or fever or chills or cramps. OBJECTIVE: GENERAL: This is a well-built female in no acute distress. VITAL SIGNS: Temperature 99.3, pulse 85, respiratory rate 20, blood pressure 100/57. HEENT: Atraumatic, normocephalic. Oral mucosa is moist. NECK: Supple. CARDIOVASCULAR: S1, S2 heard. Rate and rhythm regular. RESPIRATORY: Clear to auscultation. GASTROINTESTINAL: Abdomen is soft. MUSCULOSKELETAL: No tenderness, no edema. DERMATOLOGIC: No skin rash. NEUROLOGIC: Alert and awake and oriented x3, no focal neurologic deficits. Moving all the extremities. PSYCHIATRIC: Mood and affect normal. LABORATORY DATA: Potassium is 4.1, BUN is 46, creatinine is 5.7. ASSESSMENT AND PLAN: 1. Chronic kidney disease stage 5, stable creatinine and will need close followup as outpatient. 2. Metastatic cancer. Follow up with Oncology. 3. Anemia of chronic disease. 4. Proteinuria 5. Hypertension - need close monitoring. Okay to discharge home. Follow up in the clinic in 1-2 weeks. We will follow. MARIA TERESA
--- NOTE | 2017-08-12 08:36 | PFT ---
PATIENT HISTORY: HEIGHT: 62 WEIGHT:171 SMOKER: NO HOW LONG: PACKS PER DAY PRODUCTIVE COUGH: LUNG DISEASE: PHYSICIAN INTERPRETATION FINAL REPORT: Gate Operator Comments: The patient had fair effort and cooperation. She was on 2 liters nasal cannula, could not complete the FVC loop prior to the bronchodilator, but she could complete the loop after the bronchodilator. FVC 3.01 (100%), FEV1 12.48 (110%), FEV1/FVC 0.82. TLC 7.48 (162%), FRC 5.46 (215%), RV 4.97 (307%). Diffusion 64.9 (340%). The FEV1 and the FVC both fall within the normal range. There is no significant improvement following administration of bronchodilator. The flow volume loop does not demonstrate any significant evidence of obstructive lung disease. Total lung volumes and diffusion capacity data are likely artifact secondary to possible leak. This data cannot be interpreted. IMPRESSION: Overall, spirometry values are normal, lung volumes and diffusion capacity cannot be interpreted. Gate Operator: DESHAUN Paralegal Legal Secretary: DESHAUN MOREL
--- NOTE | 2017-08-21 19:56 | EKG ---
Test Reason : Blood Pressure : / mmHG Vent. Rate : 084 BPM Atrial Rate : 084 BPM P-R Int : 128 ms QRS Dur : 084 ms QT Int : 374 ms P-R-T Axes : 055 015 037 degrees QTc Int : 441 ms Normal sinus rhythm Possible Left atrial enlargement Borderline ECG Confirmed by PIERRE PONCE ([id number]), editor school photograph WILLOW SALINAS ([id number]) on 08/21/2017 7:55:09 PM Referred By: Confirmed By:PIERRE PONCE
== END 2017-08-06 14:39 | disposition home or self-care (01) | DRG 264 ==
LOC: ERS 21:48 → OBSVTOIN 08-03 01:15 → 2SW 08-03 01:15 → ONC 08-04 21:00
PROVIDERS: ADMIT Internal Medicine Infectious Disease; ATTEND Internal Medicine Infectious Disease
PROC: 07B60ZX Excision of Left Axillary Lymphatic, Open Approach, Diagnostic (ICD-10-PCS; principal; 2017-08-05)
DX: I16.0 Hypertensive urgency (principal); J96.01 Acute respiratory failure with hypoxia; N17.9 Acute kidney failure, unspecified; C79.51 Secondary malignant neoplasm of bone; I50.9 Heart failure, unspecified; E83.52 Hypercalcemia; N25.81 Secondary hyperparathyroidism of renal origin; N18.5 Chronic kidney disease, stage 5; I13.2 Hypertensive heart and chronic kidney disease with heart failure and with stage 5 chronic kidney disease, or end stage renal disease; Z91.14 Patient's other noncompliance with medication regimen; D50.0 Iron deficiency anemia secondary to blood loss (chronic); D63.1 Anemia in chronic kidney disease; E66.9 Obesity, unspecified; Z68.31 Body mass index [BMI] 31.0-31.9, adult; C50.912 Malignant neoplasm of unspecified site of left female breast
CPT/HCPCS: 36415; 38505; 71250; 78306; 78582; 80048; 80053; 80061; 82306; 82553; 82570; 82728; 83540; 83550; 83735; 83883; 83970; 84156; 84165; 85007; 85025; 85027; 86038; 86225; 88305; 88341; 88342; 93005; 93306; 94060; 94727; 94729; 96365; 96366; 96375; 99406; A9503; A9540; A9558; J0360; J1644

== ENCOUNTER 2017-08-18 12:48 | Inpatient (IN) | payer OTHER ==
[2017-08-18 14:05] LABS: Anion Gap 16 mmol/L (10-20); BUN (Urea Nitrogen) 50 mg/dL (9.8-20.1); Calc. Creatinine Clearance 15 mL/min (70-130); Calcium 11.1 mg/dL (7.8-10.44); Carbon Dioxide 17 mmol/L (22-29); Chloride 112 mmol/L (98-107); Estimated GFR-MDRD 11; Glucose 113 mg/dL (70-105); Potassium 3.9 mmol/L (3.5-5.1); Sodium 141 mmol/L (136-145)
[2017-08-18 14:26] LABS: HBSAg Index 0.17 S/CO (0-0.99); Hep B Core Total Ab Non-Reactive (NonReactive); Hep B Core Total Index 0.12 S/CO (0-0.79); Hep B Surf Ag Non-Reactive S/CO (NonReactive); Hep C IgG Ab Non-Reactive (NonReactive); Hep C Index 0.18 S/CO (0-0.79)
--- NOTE | 2017-08-18 14:32 | HP ---
DATE OF SERVICE: 08/18/2017 HISTORY OF PRESENT ILLNESS: A 51-year-old black female with end-stage renal disease, metastatic left breast cancer followed by Dr. Murguia. I have been asked to see her regarding placement of hemodial ysis catheter and consideration of a fistula. 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 She is right-stone ded. She is brought in today for placement of MediPort. Ultrasound vein mapping is to be obtained. She has an IV in her left hand. ALLERGIES: None. TOBACCO: None currently. ALCOHOL: None. MEDICATIONS: See list omeprazole, metoprolol, amlodipine, vitamin D3, Dulera, iron. PAST MEDICAL HISTORY: Metastatic left breast cancer, hypertension, GERD, end-stage renal disease, fo llow up Dr. Quiñones; COPD, emphysema. PAST SURGICAL HISTORY: , laparoscopic cholecystectomy, left breast biopsy. PHYSICAL EXAMINATION: VITAL SIGNS: 166 pounds, 5 foot 2 inches, 30 BMI, 94/61, 99. HEENT: Unremarkable. LUNGS: Clear to auscultation. CARDIAC: Regular rate and rhythm without murmur. ABDOMEN: Left breast mass, upper outer quadrant about 3.5 cm. Palpable left plaque axillary lymphad enopathy. ABDOMEN: Soft, nontender. EXTREMITIES: Unremarkable. LABORATORY DATA: Sodium 138, potassium 3.7, BUN 60, creatinine 5.44, GFR 10, white count 11, hemoglo bin 8.8. ASSESSMENT AND PLAN: 1. End-stage renal disease follow up Dr. Quiñones. Plan placement of a hemodialysis catheter and pro bably left arm fistula pinning vein mapping. No visibly demonstrable vein in either arm, palpable ra dial pulses bilaterally. Risk of infection, bleeding, reoperation, thrombosis, revision, possible us e of prosthetic graft explained and she consents. 2. Hypertension. 3. Metastatic breast cancer in need of MediPort. 4. Hemodialysis catheter to initiate dialysis. 5. Chronic obstructive pulmonary disease, emphysema. 6. Hypertension.
[2017-08-18] MEDS ORDERED: Heparin 10,000 UNITS/ 10 ML VIAL ONE (14:35)
[2017-08-18] MEDS ORDERED: Propofol 200 MG/20 ML VIAL ONE (14:35)
[2017-08-18] MEDS ORDERED: PHENYLEPHRINE-NS 100 MCG/ML 10 ML SYRINGE ONE (14:35)
[2017-08-18] MEDS ORDERED: Bupivacaine/Epinephrine 0.25% 30 ML VIAL ONE (14:58)
[2017-08-18] MEDS ORDERED: Sodium Chloride 0.9% 10 ML ONE (15:00)
[2017-08-18] MEDS ORDERED: Heparin 10,000 UNITS/1 ML VIAL ONE (15:00)
[2017-08-18] MEDS ORDERED: Protamine Sulfate 50 MG/5 ML VIAL ONE (15:11)
[2017-08-18] MEDS ORDERED: Heparin 5,000 UNITS/ML VIAL ONE (15:14)
[2017-08-18 15:44] LABS: HBSAB Concentration 12326.67 mIU/mL; Hep B Surf AB Reactive (NonReactive)
[2017-08-18] MEDS ORDERED: Midazolam HCl 2 mg/2 ml Vial ONE (15:47)
[2017-08-18] MEDS ORDERED: Fentanyl 250 MCG/5 ML VIAL ONE (15:47)
[2017-08-18] MEDS ORDERED: Propofol 500 MG/50 ML VIAL ONE (15:48)
[2017-08-18] MEDS ORDERED: CEFAZOLIN/Water 2 GM/20 ML SYRINGE ONE (15:52)
--- NOTE | 2017-08-18 16:06 | ULT ---
BILATERAL UPPER EXTREMITY VENOUS DOPPLER ULTRASOUND FOR DIALYSIS ACCESS: HISTORY: Chronic renal failure. FINDINGS: RIGHT UPPER EXTREMITY: The right cephalic vein measures 1.7 mm in the proximal arm, 1.4 mm in the mid arm, 2.2 mm in the dis julita arm, 3.1 mm in the cubital fossa, 1.4 mm in the proximal forearm, 1.5 mm in the mid forearm, and 1.2 mm in the distal forearm. The right basilic vein measures 2.9 mm in the proximal arm, 2.6 mm in the mid arm, 2.5 mm in the dist al arm, 2.8 mm in the cubital fossa, 1.7 mm in the proximal forearm, and 1.6 mm in the distal forearm . The basilic vein is not visualized in the distal right forearm. The right brachial artery measure s 4 mm, radial artery 1.2 mm, and ulna artery 1.4 mm. LEFT UPPER EXTREMITY: The left cephalic vein measures 3.2 mm in the proximal arm, 3 mm in the mid arm, 2.7 mm in the distal arm, 4.9 mm in the cubital fossa, and 2.2 mm in the proximal forearm, 2.3 mm in the mid forearm, and 1.7 mm in the distal forearm. The left basilic vein measures 1.7 mm in the proximal arm, 1.2 mm in the mid and distal forearm, and 1.6 mm in the cubital fossa. The left basilic vein is not seen in the forearm. The left brachial artery measures 3.3 mm, radial artery 2.3 mm, and ulnar artery 1.4 mm. POS: [facility]
[2017-08-18] MEDS ORDERED: Lidocaine 2% Jelly 5 ML TUBE ONE (16:52)
--- NOTE | 2017-08-18 19:35 | RAD ---
CHEST ONE VIEW 08/18/17 HISTORY: Mediport placement. COMPARISON: None. FINDINGS: Small volume right neck subcutaneous emphysema. A new port catheter is in place, tip at the superior SVC. Dialysis catheter tip is at the right atrium. Air space opacities within the left lung and right lung base. IMPRESSION: Satisfactory placement of a port catheter tip at the superior SVC. POS: [facility]
--- NOTE | 2017-08-18 21:33 | OP ---
DATE OF PROCEDURE: 08/18/2017 PREOPERATIVE DIAGNOSES: End-stage renal disease, metastatic breast cancer. POSTOPERATIVE DIAGNOSES: End-stage renal disease, metastatic breast cancer. PROCEDURES PERFORMED: Right IJ tunneled low profile MediPort. MediPort, right chest wall. Left IJ cuffed tunnel hemodialysis catheter, angiodynamics precurved. Left arm primary fistula, perforating branch antecubital vein to the proximal radial artery which is of good caliber with sole outflow, cep halic vein with retrograde antecubital vein preserved. Good Doppler signal cephalic vein outflow upp er arm within the procedure. SURGEON: Dr. Chaitanya Ace. ANESTHESIA: Intravenous sedation, local 0.25% Marcaine with epinephrine 60 mL mixed with 2% Xylocain e, 10 mL DESCRIPTION OF PROCEDURE: The patient taken to the operating room where under intravenous sedation, neck and chest prepared with ChloraPrep, draped in routine fashion. Local anesthetic infiltrated int o skin and subcutaneous tissue about the operative site. Using ultrasound guidance, the right and le ft internal jugular veins were cannulated with trocar catheter and J-wire is threaded. On the left s britany, a stab incision made at the J wire entrance site over the left upper chest infraclavicular and u sing the tunneling device, precurved angiodynamics cuffed tunnel hemodialysis catheter tunneled betwe en the two incisions, placing the fabric cuff beneath the skin exit site and catheter secured with 2 interrupted sutures of 3-0 nylon and Dermabond Biopatch applied. Smaller medium size dilators placed over the J-wire into the internal jugular vein removed. Dilator and pull-away sheath placed under f luoroscopic visualization in the superior vena cava and dilator and J-wire removed. Catheter placed with pull-away sheath. Pull-away sheath removed. Fluoroscopically, catheter noted to be in good pos ition. Platysma approximated with 4-0 Monocryl, skin with subdermal 4-0 Monocryl. DermaGlue and jonathon rile dressings applied as each port aspirated blood and flushed with saline solution and heparinized saline solution 1000 units heparin per mL, indicated volume of the port. On the right side, an incision was made over the right chest infraclavicular and transverse skin inci david was made carried down through the skin and subcutaneous tissue. Subcutaneous pocket created wit h sharp and blunt dissection using cautery for hemostasis creating the pocket to accommodate the low profile MediPort. Using the tunneling device, the catheter was tunneled between the neck incision an d the chest incision. A dilator and pull-away sheath placed over the J-wire into the internal jugula r vein right and dilator and J-wire removed. Catheter placed with pull-away sheath and pull-away she ath removed. Fluoroscopically, catheter tip placed in optimal position in the superior vena cava. P latysma approximated with 4-0 Monocryl, skin with subdermal 4-0 Monocryl and catheter tailored to [facility], connected to the MediPort which was placed in subcutaneous pocket and secured with 2 interrupted sutures of 3-0 Prolene and subcutaneous tissues approximated with 3-0 Monocryl, skin with subdermal 4-0 Monocryl. The MediPort accessed with [place] needle for IV access, aspirated blood and flushed wit h heparinized saline solution. X-rays revealed good line placement. Attention was turned to the left arm where the axilla was clipped of hair in arm left, prepared with ChloraPrep, draped in routine fashion. Proximal volar incision made longitudinally below the antecub ital fossa, carried down through the skin and subcutaneous tissue. Antecubital vein identified. The re was no communication of the basilic vein. There was good perforating branch dissected free, follo wed down to the proximal radial artery. Brachial, ulnar and radial artery identified. The patient w as given 5000 units heparin intravenously. After adequate circulation time, the perforating branch o f the antecubital vein dissected free and divided between clips and spatulated over a branch point. Proximal artery clamped proximally and distally with vascular clamps. Longitudinal arteriotomy made sharply and elongated with Nieves scissors. A 2 cm anastomosis created between the end of the perfora ting branch antecubital vein to side proximal radial artery using continuous suture of 6-0 Prolene. Once anastomosis was completed, vascular clamps were released and there was good flow in the fistula evident by Doppler interrogation of the cephalic vein outflow. Good hemostasis obtained. Anesthesia provided intravenous 25 mg of protamine. Good hemostasis noted. Surgicel applied. Subcutaneous ti ssues approximated with 3-0 Monocryl, skin with subdermal 4-0 Monocryl and DermaGlue applied. The pa tient tolerated the procedure well.
[2017-08-18] MEDS ORDERED: HYDROcodone/Acetaminophen 5/325 mg Tablet ONE (21:39)
[2017-08-18] MEDS ORDERED: Sodium Chloride 0.65% Nasal 44 ML BOT EA NARE PRN (23:24)
[2017-08-18] MEDS ORDERED: Mometasone/Formoterol 120 PUFF INHALER INH SCH (23:30)
[2017-08-18] MEDS ORDERED: Metoprolol Tartrate 50 MG TAB PO SCH (23:30)
[2017-08-18] MEDS ORDERED: traMADol HCl 50 MG TAB PO PRN (23:35)
[2017-08-19] MEDS: traMADol HCl 50 MG TAB PO PRN (05:47)
[2017-08-19] MEDS: Mometasone/Formoterol 120 PUFF INHALER INH SCH ×2 (07:54→18:20)
[2017-08-19 07:57] LABS: Anion Gap 21 mmol/L (10-20); BUN (Urea Nitrogen) 59 mg/dL (9.8-20.1); Calc. Creatinine Clearance 12 mL/min (70-130); Calcium 10.4 mg/dL (7.8-10.44); Carbon Dioxide 14 mmol/L (22-29); Chloride 110 mmol/L (98-107); Estimated GFR-MDRD 8; Glucose 164 mg/dL (70-105); Potassium 4.5 mmol/L (3.5-5.1); Sodium 140 mmol/L (136-145)
[2017-08-19] MEDS: Ferrous Sulfate 325 MG TAB PO SCH (08:38)
[2017-08-19] MEDS ORDERED: Epoetin (ESRD) 10,000 UNITS/ML VIAL IVP SCH (09:30)
[2017-08-19] MEDS ORDERED: Tuberculin PPD 0.1 ML VIAL I-DERMAL SCH ×2 (09:30→09:45)
[2017-08-19] MEDS ORDERED: Heparin 10,000 UNITS/ 10 ML VIAL ONE (10:00)
[2017-08-19] MEDS: Metoprolol Tartrate 50 MG TAB PO SCH ×2 (10:10→22:02)
[2017-08-19] MEDS: Amlodipine 10 MG TAB PO SCH (10:10)
[2017-08-19 10:49] VITALS: BMI 26.9
[2017-08-19] MEDS ORDERED: Epoetin (ESRD) 20,000 UNITS/ML SC SCH (15:15)
--- NOTE | 2017-08-19 15:23 | CON ---
DATE OF CONSULTATION: 08/19/2017 REFERRING PHYSICIAN: Dr. Chaitanya Ace REASON FOR CONSULTATION: Chronic kidney disease. REASON FOR ADMISSION: Port placement. HISTORY OF PRESENT ILLNESS: This is a 51-year-old female with history of chronic kidney disease sta ge 5, metastatic breast cancer was having outpatient surgery for hemodialysis catheter and fistula pl acement in anticipation of having dialysis. The patient got sick and had to get admitted and she rem ained sick with nausea, vomiting, and also feeling very tired. Plan is to start her on dialysis. Ne phrology is consulted. PAST MEDICAL HISTORY: Positive for metastatic breast cancer, hypertension, GERD. PAST SURGICAL HISTORY: Cholecystectomy and in the past. HOME MEDICATIONS: Omeprazole, metoprolol, vitamin D3, , iron. ALLERGIES: None. SOCIAL HISTORY: No smoking, alcohol or drugs. FAMILY HISTORY: None. REVIEW OF SYSTEMS: The following complete review of systems was negative, unless otherwise mentioned in the HPI or below: Constitutional: Weight loss or gain, ability to conduct usual activities. Skin: Rash, itching. Eyes: Double vision, pain. ENT/Mouth: Nose bleeding, neck stiffness, pain, tenderness. Cardiovascular: Palpitations, dyspnea on exertion, orthopnea. Respiratory: Shortness of breath, wheezing, cough, hemoptysis, fever or night sweats. Gastrointestinal: Poor appetite, abdominal pain, heartburn, nausea, vomiting, constipation, or diarrhea. Genitourinary: Urgency, frequency, dysuria, nocturia. Musculoskeletal: Pain, swelling. Neurologic/Psychiatric: Anxiety, depression. Allergy/Immunologic: Skin rash, bleeding tendency. OBJECTIVE: GENERAL: This is a thin built female in no apparent distress. VITAL SIGNS: Temperature 98.7, pulse 100, respiratory 20, blood pressure 140/70. HEENT: Atraumatic, normocephalic. Oral mucosa is moist. NECK: Supple. CARDIOVASCULAR: S1, S2 heard. Rate and rhythm regular. RESPIRATORY: Clear. ABDOMEN: Soft. MUSCULOSKELETAL: 1+ edema. NEUROLOGIC: Alert and awake normal. PSYCH: Mood and affect normal. LABS: Potassium 4.5, BUN 59, creatinine 6.23. ASSESSMENT AND PLAN: 1. End-stage renal disease. Plan is to start on hemodialysis. Will have dialysis access. The ever ent already has dialysis access placement. I appreciate surgery. 2. Hypertension, stable. 3. Edema, controlled. 4. Anemia. We will start on Epogen as tolerated. Plan is to start on dialysis. Dialysis nurse notified. We will have case management for outpatient placement. PPD skin test placed and orders placed. We will follow.
[2017-08-19] MEDS: Acetaminophen 500 MG TAB PO PRN ×2 (15:45→22:05)
[2017-08-19] MEDS ORDERED: Epoetin (NON-ESRD) 20,000 UNITS/ML ML IVP SCH (17:15)
[2017-08-19] MEDS ORDERED: Sodium Chloride 0.9% 500 ML IV SCH (19:00)
--- NOTE | 2017-08-19 19:05 | PRG ---
SUBJECTIVE: Ms. Toney is doing well today. She was admitted last night because of low oxygen saturat ions, oozing from her surgical sites. Feeling that she is uremic and in need of dialysis, Dr. Darren musa was consulted and dialysis initiated. Outpatient dialysis arrangements were being made. OBJECTIVE: VITAL SIGNS: 98 degrees, 114, 125/79, 95% sat on supplemental oxygen. LUNGS: Clear to auscultation. CARDIAC: Regular rate and rhythm. ABDOMEN: Soft. LABORATORY DATA: Sodium 140, potassium 4.5, BUN 59, creatinine 6.23, GFR 8, glucose 164. ASSESSMENT AND PLAN: 1. MediPort site access, it is slightly puffy around this. We will observe. MediPort was accessed for IV access today. 2. Hemodialysis catheter for hemodialysis. 3. Left arm fistula has a slight hematoma. Wade wrap was removed. It can be left off. There was so me ecchymosis as expected. There was good thrill and bruit.
[2017-08-20 06:58] LABS: Anion Gap 19 mmol/L (10-20); BUN (Urea Nitrogen) 50 mg/dL (9.8-20.1); Calc. Creatinine Clearance 12 mL/min (70-130); Calcium 10.4 mg/dL (7.8-10.44); Carbon Dioxide 19 mmol/L (22-29); Chloride 105 mmol/L (98-107); Estimated GFR-MDRD 9; Glucose 111 mg/dL (70-105); Sodium 139 mmol/L (136-145)
[2017-08-20 07:14] LABS: Hemoglobin 5.9 g/dL (12.0-16.0); Mean Corpuscular HGB CONC 34.5 g/dL (32.0-36.0); Mean Corpuscular Hemoglobin 28.6 pg (27.0-31.0); Mean Corpuscular Volume 82.7 fl (81.0-99.0); RBC Distribution Width 15.1 % (11.5-14.5); Red Blood Cell (RBC) Count 2.05 mill/uL (4.20-5.40); White Blood Cell (WBC) Count 16.9 thou/uL (4.8-10.8)
[2017-08-20 07:28] LABS: Band 8 % (5-11); Lymphocytes 26 % (21-51); MDiff Complete? YES; Mean Platelet Volume 11.9 fL (7.4-10.4); Metamyelocyte 8 % (0-0); Monocytes 3 % (0-10); Myelocyte 2 % (0-0); Neutrophil 52 % (42-75); Nucleated RBC 1 % (0); PLT Morphology Comment Appears Decreased; Platelet Count 33 thou/uL (130-400); Reactive Lymphocytes 1 % (0-10)
[2017-08-20] MEDS: Mometasone/Formoterol 120 PUFF INHALER INH SCH ×2 (07:54→21:23)
[2017-08-20 08:17] LABS: Mean Corpuscular HGB CONC 34.1 g/dL (32.0-36.0); Mean Corpuscular Hemoglobin 29.1 pg (27.0-31.0); Mean Corpuscular Volume 85.3 fl (81.0-99.0); RBC Distribution Width 15.1 % (11.5-14.5); Red Blood Cell (RBC) Count 2.05 mill/uL (4.20-5.40); White Blood Cell (WBC) Count 17.3 thou/uL (4.8-10.8)
[2017-08-20] MEDS: Amlodipine 10 MG TAB PO SCH (08:42)
[2017-08-20] MEDS: Metoprolol Tartrate 50 MG TAB PO SCH ×2 (08:43→20:53)
[2017-08-20 08:45] LABS: Band 10 % (5-11); Eosinophils 2 % (0-10); Lymphocytes 18 % (21-51); MDiff Complete? YES; Mean Platelet Volume 12.3 fL (7.4-10.4); Metamyelocyte 8 % (0-0); Monocytes 1 % (0-10); Myelocyte 6 % (0-0); Neutrophil 53 % (42-75); Nucleated RBC 4 % (0); PLT Morphology Comment Appears Decreased; Platelet Count 32 thou/uL (130-400); Reactive Lymphocytes 2 % (0-10)
[2017-08-20] MEDS ORDERED: Epoetin (ESRD) 10,000 UNITS/ML VIAL IVP SCH (09:00)
[2017-08-20] MEDS: Ferrous Sulfate 325 MG TAB PO SCH (09:10)
--- NOTE | 2017-08-20 09:32 | RAD ---
CHEST ONE VIEW: HISTORY: Status post Mediport catheter placement. COMPARISON: 08/18/2017 FINDINGS: Re-demonstration of a left-sided HemoSplit dialysis catheter. Re-demonstration of a stable-appearing right-sided Mediport catheter. No pneumothorax. Stable aeration of the lung parenchyma. Stable ca rdiac silhouette. IMPRESSION: No pneumothorax. POS: [facility]
[2017-08-20] MEDS ORDERED: Heparin 1,000 UNITS/ML VIAL ONE (11:11)
--- NOTE | 2017-08-20 16:28 | PRG ---
DATE OF SERVICE: 08/20/2017 SUBJECTIVE: Patient was seen and examined at bedside and overnight events noted. Patient denies any shortness of breath or chest pain or palpitation. No history of nausea or vomiting or diarrhea or f ever or chills or cramps. OBJECTIVE: GENERAL: This is a well-built female in no apparent distress. VITAL SIGNS: Temperature is 97.3, pulse 90, respiratory rate 18 and blood pressure 180/72. HEENT: Atraumatic, normocephalic. Oral mucosa is moist. NECK: Supple. CARDIOVASCULAR: S1, S2 heard. Rate and rhythm regular. RESPIRATORY: Clear to auscultation. GASTROINTESTINAL: Abdomen is soft. MUSCULOSKELETAL: No tenderness. No edema. DERMATOLOGIC: No skin rash. NEUROLOGIC: Alert and awake and oriented x3. No focal neurologic deficits. Moving all the extremit ies. PSYCHIATRIC: Mood and affect normal. LABORATORY DATA: Hemoglobin is 6.0, WBC 17.3 and platelets 632. Potassium is 4.0, BUN is 50 and cre atinine is 6.2. ASSESSMENT AND PLAN: 1. End-stage renal disease, start on hemodialysis. 2. Thrombocytopenia with anemia. We will have Hem/Onc. 3. History of metastatic cancer. 4. Hypertension. Pressure is stable. 5. Edema, controlled. 6. Anemia. We will continue on Epogen and transfuse. 7. Consult Hematology. Plan discussed with Dr. Ace. Plan is to also consult Hospitalist for medical management and given her complex comorbidities. We will follow. Rule out infection. We will check blood cultures.
[2017-08-20 17:09] LABS: Hemoglobin 7.2 g/dL (12.0-16.0); Mean Corpuscular HGB CONC 34.1 g/dL (32.0-36.0); Mean Corpuscular Hemoglobin 28.8 pg (27.0-31.0); Mean Corpuscular Volume 84.3 fl (81.0-99.0); Mean Platelet Volume 9.5 fL (7.4-10.4); Platelet Count 54 thou/uL (130-400); RBC Distribution Width 14.3 % (11.5-14.5); Red Blood Cell (RBC) Count 2.51 mill/uL (4.20-5.40)
[2017-08-20 17:13] LABS: INR-International Normal Ratio 1.2; Prothrombin Time 15.8 SEC (12.0-14.7)
[2017-08-20 17:16] LABS: Fibrinogen 300 mg/dL (253-463)
[2017-08-20 17:22] LABS: Anisocytosis SLIGHT = 6-15 cells (100X) (0-5/hpf); Band 18 % (5-11); Basophilic Stippling SLIGHT = 1-2 cells (100X) (None Seen); Eosinophils 2 % (0-10); Lymphocytes 22 % (21-51); MDiff Complete? YES; Metamyelocyte 1 % (0-0); Monocytes 5 % (0-10); Neutrophil 52 % (42-75); Nucleated RBC 9 % (0); PLT Morphology Comment Appears Decreased; Polychromasia MODERATE = 3-4 cells (100X) (0-2/hpf); White Blood Cell (WBC) Count 14.6 thou/uL (4.8-10.8)
[2017-08-20 17:25] LABS: ALT (SGPT) 21 U/L (8-55); AST (SGOT) 34 U/L (5-34); Albumin 3.6 g/dL (3.5-5.0); Alkaline Phosphatase 100 U/L (40-150); Bilirubin, Direct 0.3 mg/dL (0.1-0.3); Bilirubin, Total 0.8 mg/dL (0.2-1.2); LDH 1724 U/L (125-220)
[2017-08-20 17:32] LABS: D-Dimer Test 6.37 *mcg/mL (0.27-0.43)
[2017-08-20 17:39] LABS: FSP-Qualitative ABNORMAL (Normal)
--- NOTE | 2017-08-20 17:46 | PDOC.PN ---
- Subjective Encounter Start Date: 08/20/17 Encounter Start Time: 17:00 Subjective: pt up in dialysis no complains - Objective Vital Signs & Weight: Vital Signs (12 hours) Temp Pulse Resp BP Pulse Ox 08/20/17 13:25 97.3 F L 16 98 08/20/17 11:26 92 L 08/20/17 11:03 98.0 F 20 94 L 08/20/17 10:48 98.3 F 20 93 L 08/20/17 08:41 98.2 F 117 H 14 96/57 L 94 L 08/20/17 08:00 98.2 F 117 H 14 08/20/17 07:54 110 H 18 92 L 08/20/17 06:25 116 H 107/62 Weight Admit Weight 166 lb 8 oz Weight 161 lb 6.4 oz Most Recent Monitor Data Heart Rate from ECG 120 NIBP 118/72 I&O: 08/19/17 08/20/17 08/21/17 06:59 06:59 06:59 Intake Total 240 600 Output Total 250 Balance -10 600 Result Diagrams: 08/20/17 16:55 08/20/17 06:42 Phys Exam - Physical Examination pale conjuntiva Neck: no nodes Respiratory: no wheezing, no rales Cardiovascular: RRR, no significant murmur pt has a fistula to her left hand, port to right chest Gastrointestinal: soft, non-tender Psychiatric: normal affect, A&O x 3 Skin: no rash Dx/Plan - Plan * . 1) Anemia 2) thrombocytopenia 3) breast ca with mets 4) ckd now on dialysis pt was dx with triple negative breast ca with mets last month. she came in this visit for dialysis and found to have thrombocytopenia and anemia. Pt had her blood drawn on 08/18 ( i called lab who stated that the platelets were 63). Pt's platelets have been worsening since 08/19. She has not been started on any chemo as of yet. Her bone scan does indicated mets. She was started on norvasc ( switched from lisinopril due to elevated creatinine) which can cause <1% thrombocytopenia. will discontinue norvasc. I am not sure if this is hemolysis or dic. I spoke with dialysis nurse who states that they normally put heparin only in the cath. Also her platelets were dropping prior to dialysis. will check ldh, dic panel, lft's, haptoglobin. Pt's overall prognosis is poor. Pt has not been getting any heparin. if her platelets continue to drop may consider heme consult. spoke with oncology about pt's abnormal lab result. Pt's ldh elevated and in dic. Most likely her abnormal labs are due to her underlying breast cancer. will continue to monitor. Review of Systems - Review of Systems Eyes: negative: Pain, Vision Change, Conjunctivae Inflammation, Eyelid Inflammation, Redness, Other ENT: negative: Ear Pain, Ear Discharge, Nose Pain, Nose Discharge, Nose Congestion, Mouth Pain, Mouth Swelling, Throat Pain, Throat Swelling, Other Respiratory: negative: Cough, Dry, Shortness of Breath, Hemoptysis, SOB with Excertion, Pleuritic Pain, Sputum, Wheezing Cardiovascular: negative: chest pain, palpitations, orthopnea, paroxysmal nocturnal dyspnea, edema, light headedness, other Gastrointestinal: negative: Nausea, Vomiting, Abdominal Pain, Diarrhea, Constipation, Melena, Hematochezia, Other Genitourinary: negative: Dysuria, Frequency, Incontinence, Hematuria, Retention , Other - Medications/Allergies Allergies/Adverse Reactions: Allergies Allergy/AdvReac Type Severity Reaction Status Date / Time No Known Drug Allergies Allergy Verified 08/17/17 16:48 Medications: Current Medications Acetaminophen (Tylenol) 1,000 mg PO QIDPRN PRN PRN Reason: Pain Last Admin: 08/19/17 22:05 Dose: 1,000 mg Amlodipine Besylate (Norvasc) 10 mg PO DAILY [facility] Last Admin: 08/20/17 08:42 Dose: Not Given Cholecalciferol (Vitamin D3) 2,000 units PO QAM [facility] Last Admin: 08/20/17 09:10 Dose: 2,000 units Ferrous Sulfate (Feosol) 325 mg PO QAM-WM [facility] Last Admin: 08/20/17 09:10 Dose: 325 mg Metoprolol Tartrate (Lopressor) 50 mg PO BID [facility] Last Admin: 08/20/17 08:43 Dose: Not Given Mometasone Furoate/Formoterol Fumar (Dulera 200 Mcg/5 Mcg Inhaler) 2 puff INH BID-RT [facility] Last Admin: 08/20/17 07:54 Dose: 2 puff Read Ppd Test Site 0 each PO ONE [facility] Stop: 08/21/17 09:01 Ondansetron HCl (Zofran Odt) 4 mg SL Q4H PRN PRN Reason: Nausea/Vomiting Pantoprazole Sodium (Protonix) 40 mg PO DAILY [facility] Last Admin: 08/20/17 09:11 Dose: 40 mg Sodium Chloride ([place] Nasal [place] 0.65%) 0 ml EA NARE PRN PRN PRN Reason: Nasal Dryness Sodium Chloride (Flush - Normal Saline) 10 ml IVF PRN PRN PRN Reason: Saline Flush Tramadol HCl (Ultram) 50 mg PO QIDPRN PRN PRN Reason: Mild-Moderate Pain (1-5) Last Admin: 08/20/17 09:09 Dose: 50 mg Tramadol HCl (Ultram) 100 mg PO BIDPRN PRN PRN Reason: Moderate to Severe Pain (6-10) Last Admin: 08/19/17 05:47 Dose: 100 mg
[2017-08-20 17:49] LABS: PTT Greater than 250.0 SEC (22.9-36.1)
[2017-08-20 17:50] LABS: Platelet Count 54 thou/uL (130-400)
[2017-08-20 17:51] LABS: FSP-Semiquantitative >=20 & <40 mcg/mL (Less than 5)
[2017-08-20 18:22] LABS: Bilirubin Negative (Negative); Blood, Urine Negative (Negative); Clarity CLEAR (Clear); Glucose, Urine (Dipstick) Negative (Negative); Leukocyte Small (Negative); Nitrite Negative (Negative); Protein, Urine (Dipstick) 100 mg/dL (Neg-Trace); Specific Gravity, Urine 1.012 (1.002-1.036); Urobilinogen 0.2 mg/dL (0.2-1.0); pH, Urine 7.5 (5.0-9.0)
[2017-08-20 18:25] LABS: Bacteria/HPF Rare-Few HPF (None Seen); Hyaline Casts/LPF 0-3 HYALINE CAST LPF (0-3 Hyaline); Pathc Cast-AUWi Flag 0.13 (0-2.49); Squamous Epithelial 0-3 HPF (0-3); WBC/HPF 21-50 HPF (0-3)
[2017-08-20 18:37] LABS: RBC/HPF 0-3 HPF (0-3)
--- NOTE | 2017-08-20 23:09 | PRG ---
DATE OF SERVICE: 08/20/2017 OBJECTIVE: VITAL SIGNS: Temperature 97.3 degrees, respiratory rate 16, heart rate 120, blood pressure 118/72. LUNGS: Clear to auscultation. CARDIAC: Regular rate and rhythm without murmur or gallop. ABDOMEN: Soft. LABORATORY DATA: This morning, her hemoglobin dropped down to 5.9. When it was rechecked, it was 6. White count 16, platelet count 33,000. She was given one platelet pack, up to 54,000. X-RAY FINDINGS: Chest x-ray was checked today and was without acute problems. There has been no latricia dence of bleeding. ASSESSMENT AND PLAN: 1. Thrombocytopenia, etiology uncertain. 2. Metastatic breast cancer. 3. End-stage renal disease, on dialysis. 4. Status post Mediport placement. Consult Hematology/Oncology for thrombocytopenia, and etiology o f her anemia is uncertain. This chronic anemia is a medical disease but why it dropped 3 units is un certain, transfused 2 units during dialysis, 1 unit of platelets and observe her H&H. Dialysis per N ephrology. We will consult Hospitalist and Oncology.
[2017-08-21 04:54] LABS: ALT (SGPT) 16 U/L (8-55); AST (SGOT) 35 U/L (5-34); Albumin 3.5 g/dL (3.5-5.0); Alkaline Phosphatase 95 U/L (40-150); Anion Gap 16 mmol/L (10-20); BUN (Urea Nitrogen) 39 mg/dL (9.8-20.1); Bilirubin, Total 0.8 mg/dL (0.2-1.2); Calc. Creatinine Clearance 14 mL/min (70-130); Calcium 10.5 mg/dL (7.8-10.44); Carbon Dioxide 25 mmol/L (22-29); Chloride 102 mmol/L (98-107); Estimated GFR-MDRD 10; Globulin 3.2 g/dL (2.4-3.5); Glucose 109 mg/dL (70-105); Potassium 3.8 mmol/L (3.5-5.1); Protein, Total 6.7 g/dL (6.0-8.3); Sodium 139 mmol/L (136-145)
[2017-08-21 05:07] LABS: Band 21 % (5-11); Hemoglobin 6.7 g/dL (12.0-16.0); Hypochromia SLIGHT = 6-15 cells (100X) (0-5/hpf); Lymphocytes 30 % (21-51); MDiff Complete? YES; Mean Corpuscular HGB CONC 34.9 g/dL (32.0-36.0); Mean Corpuscular Hemoglobin 29.2 pg (27.0-31.0); Mean Corpuscular Volume 83.6 fl (81.0-99.0); Mean Platelet Volume 10.3 fL (7.4-10.4); Monocytes 7 % (0-10); Neutrophil 42 % (42-75); PLT Morphology Comment Appears Decreased; Platelet Count 40 thou/uL (130-400); RBC Distribution Width 14.2 % (11.5-14.5); White Blood Cell (WBC) Count 13.8 thou/uL (4.8-10.8)
[2017-08-21] MEDS: Mometasone/Formoterol 120 PUFF INHALER INH SCH ×2 (06:35→19:25)
[2017-08-21] MEDS ORDERED: READ PPD TEST SITE PO SCH (09:00)
[2017-08-21] MEDS: Ferrous Sulfate 325 MG TAB PO SCH (09:21)
[2017-08-21] MEDS: Amlodipine 10 MG TAB PO SCH (09:21)
[2017-08-21] MEDS: Metoprolol Tartrate 50 MG TAB PO SCH ×2 (09:21→21:21)
--- NOTE | 2017-08-21 11:22 | PRG ---
DATE OF SERVICE: 08/21/2017 SUBJECTIVE: Patient was seen and examined at bedside and overnight events noted. Patient denies any shortness of breath or chest pain or palpitation. No history of nausea or vomiting or diarrhea or f ever or chills or cramps. OBJECTIVE: GENERAL: This is a thin-built female, very lethargic. VITAL SIGNS: Temperature 98.9, pulse 100, respiratory rate 18, blood pressure 127/75. HEENT: Atraumatic, normocephalic. Oral mucosa is moist. NECK: Supple. CARDIOVASCULAR: S1, S2 heard. Rate and rhythm regular. RESPIRATORY: Clear to auscultation. GASTROINTESTINAL: Abdomen is soft. MUSCULOSKELETAL: No tenderness. No edema. DERMATOLOGIC: No skin rash. NEUROLOGIC: Alert and awake and oriented x3. No focal neurologic deficits. Moving all the extremiti es. PSYCHIATRIC: Mood and affect normal. LABORATORY DATA: Hemoglobin is 6.7, platelets 40. Sodium is 139, potassium 3.8, BUN 39, and creatin ine 5.2. ASSESSMENT AND PLAN: 1. End-stage renal disease, started on hemodialysis during this admission and tolerating well. We w ill continue on dialysis. 2. Thrombocytopenia with anemia. Follow up with Hematology/Oncology with history of metastatic canc er. 3. Edema, controlled. 4. Anemia. 5. No dialysis today. We will have dialysis as tolerated. Follow with case management for outpatie nt placement.
--- NOTE | 2017-08-21 14:29 | PDOC.PN ---
- Subjective Encounter Start Date: 08/21/17 Encounter Start Time: 13:00 Subjective: pt up in bed with family no complains - Objective Vital Signs & Weight: Vital Signs (12 hours) Temp Pulse Resp BP BP Pulse Ox 08/21/17 12:20 98.6 F 98 16 107/70 96 08/21/17 09:21 112 H 127/75 08/21/17 07:23 98.4 F 112 H 18 127/75 94 L 08/21/17 03:56 98.9 F 100 18 111/71 96 Weight Admit Weight 166 lb 8 oz Weight 161 lb 6.4 oz Most Recent Monitor Data Heart Rate from ECG 120 NIBP 118/72 I&O: 08/20/17 08/21/17 08/22/17 06:59 06:59 07:59 Intake Total 240 1140 0 Output Total 250 300 Balance -10 840 0 Result Diagrams: 08/21/17 04:28 08/21/17 04:28 Phys Exam - Physical Examination HEENT: PERRLA, moist MMs Neck: no nodes, no JVD Respiratory: no wheezing, no rales Cardiovascular: RRR, no significant murmur pt has fistula to her left arm, port to her right chest wall/dialysis to L Gastrointestinal: soft, non-tender Musculoskeletal: no edema Psychiatric: normal affect Dx/Plan - Plan * . 1) Anemia 2) thrombocytopenia 3) breast ca with mets 4) ckd now on dialysis pt was dx with triple negative breast ca with mets last month. she came in this visit for dialysis and found to have thrombocytopenia and anemia. Pt had her blood drawn on 08/18 ( i called lab who stated that the platelets were 63). Pt's platelets have been worsening since 08/19. She has not been started on any chemo as of yet. Her bone scan does indicated mets. She was started on norvasc ( switched from lisinopril due to elevated creatinine) which can cause <1% thrombocytopenia. will discontinue norvasc. I am not sure if this is hemolysis or dic. I spoke with dialysis nurse who states that they normally put heparin only in the cath. Also her platelets were dropping prior to dialysis. will check ldh, dic panel, lft's, haptoglobin. Pt's overall prognosis is poor. Pt has not been getting any heparin. if her platelets continue to drop may consider heme consult. spoke with oncology about pt's abnormal lab result. Pt's ldh elevated and in dic. Most likely her abnormal labs are due to her underlying breast cancer. will continue to monitor. 08/21 platelets are trending down slowly, hh is low pt transfused 2u of blood. pt to start chemo as outpatient. Review of Systems - Review of Systems Eyes: negative: Pain, Vision Change, Conjunctivae Inflammation, Eyelid Inflammation, Redness, Other ENT: negative: Ear Pain, Ear Discharge, Nose Pain, Nose Discharge, Nose Congestion, Mouth Pain, Mouth Swelling, Throat Pain, Throat Swelling, Other Respiratory: negative: Cough, Dry, Shortness of Breath, Hemoptysis, SOB with Excertion, Pleuritic Pain, Sputum, Wheezing Gastrointestinal: negative: Nausea, Vomiting, Abdominal Pain, Diarrhea, Constipation, Melena, Hematochezia, Other - Medications/Allergies Allergies/Adverse Reactions: Allergies Allergy/AdvReac Type Severity Reaction Status Date / Time No Known Drug Allergies Allergy Verified 08/17/17 16:48 Medications: Current Medications Acetaminophen (Tylenol) 1,000 mg PO QIDPRN PRN PRN Reason: Pain Last Admin: 08/19/17 22:05 Dose: 1,000 mg Amlodipine Besylate (Norvasc) 10 mg PO DAILY [facility] Last Admin: 08/21/17 09:21 Dose: 10 mg Cholecalciferol (Vitamin D3) 2,000 units PO QAM [facility] Last Admin: 08/21/17 09:20 Dose: 2,000 units Ferrous Sulfate (Feosol) 325 mg PO QAM-WM [facility] Last Admin: 08/21/17 09:21 Dose: 325 mg Metoprolol Tartrate (Lopressor) 50 mg PO BID [facility] Last Admin: 08/21/17 09:21 Dose: 50 mg Mometasone Furoate/Formoterol Fumar (Dulera 200 Mcg/5 Mcg Inhaler) 2 puff INH BID-RT [facility] Last Admin: 08/21/17 06:35 Dose: 2 puff Ondansetron HCl (Zofran Odt) 4 mg SL Q4H PRN PRN Reason: Nausea/Vomiting Pantoprazole Sodium (Protonix) 40 mg PO DAILY [facility] Last Admin: 08/21/17 09:20 Dose: 40 mg Sodium Chloride ([place]are Nasal [place] 0.65%) 0 ml EA NARE PRN PRN PRN Reason: Nasal Dryness Sodium Chloride (Flush - Normal Saline) 10 ml IVF PRN PRN PRN Reason: Saline Flush Tramadol HCl (Ultram) 50 mg PO QIDPRN PRN PRN Reason: Mild-Moderate Pain (1-5) Last Admin: 08/20/17 09:09 Dose: 50 mg Tramadol HCl (Ultram) 100 mg PO BIDPRN PRN PRN Reason: Moderate to Severe Pain (6-10) Last Admin: 08/19/17 05:47 Dose: 100 mg
--- NOTE | 2017-08-21 15:59 | PRG ---
DATE OF SERVICE: 08/21/2017 SUBJECTIVE: Ms. Toney is doing well today. OBJECTIVE: VITAL SIGNS: Temperature 98.6, heart rate 98, respiratory rate 16, blood pressure 107/60. LUNGS: Clear to auscultation. CARDIAC: Regular rate and rhythm without murmur or gallop. ABDOMEN: Soft, nontender. SKIN: MediPort site looks good. EXTREMITIES: Left arm fistula has a good thrill and bruit. LABORATORY DATA: This morning, hemoglobin is 6.7, white count 13.8. She has received another unit o f blood ordered. The patient's platelet count is 40,000. Hospitalist has seen her. We are awaiting oncology visit. The patient's thrombocytopenia and anemia is probably related to her metastatic cancer, bone marrow disease. Continue dialysis for end-stage renal disease. Expect discharge home early in the week once outpatient dialysis arranged and her hem oglobin stabilizes.
[2017-08-21] MEDS: traMADol HCl 50 MG TAB PO PRN (21:21)
[2017-08-22] MEDS: Mometasone/Formoterol 120 PUFF INHALER INH SCH ×2 (07:12→20:06)
[2017-08-22] MEDS: Ferrous Sulfate 325 MG TAB PO SCH (09:11)
[2017-08-22] MEDS: Metoprolol Tartrate 50 MG TAB PO SCH ×2 (09:11→20:40)
[2017-08-22 09:12] LABS: ALT (SGPT) 19 U/L (8-55); AST (SGOT) 41 U/L (5-34); Albumin 3.5 g/dL (3.5-5.0); Alkaline Phosphatase 99 U/L (40-150); Anion Gap 18 mmol/L (10-20); BUN (Urea Nitrogen) 51 mg/dL (9.8-20.1); Bilirubin, Total 1.1 mg/dL (0.2-1.2); Calc. Creatinine Clearance 11 mL/min (70-130); Calcium 10.5 mg/dL (7.8-10.44); Carbon Dioxide 20 mmol/L (22-29); Chloride 103 mmol/L (98-107); Estimated GFR-MDRD 7; Globulin 3.4 g/dL (2.4-3.5); Glucose 112 mg/dL (70-105); Potassium 3.6 mmol/L (3.5-5.1); Protein, Total 6.9 g/dL (6.0-8.3); Sodium 137 mmol/L (136-145)
[2017-08-22] MEDS: Amlodipine 10 MG TAB PO SCH (09:12)
[2017-08-22 09:13] LABS: Hemoglobin 9.9 g/dL (12.0-16.0); Mean Corpuscular HGB CONC 34.6 g/dL (32.0-36.0); Mean Corpuscular Hemoglobin 30.1 pg (27.0-31.0); Mean Corpuscular Volume 87.2 fl (81.0-99.0); Mean Platelet Volume 12.3 fL (7.4-10.4); Platelet Count 28 thou/uL (130-400); RBC Distribution Width 13.7 % (11.5-14.5); Red Blood Cell (RBC) Count 3.27 mill/uL (4.20-5.40); White Blood Cell (WBC) Count 13.7 thou/uL (4.8-10.8)
[2017-08-22 10:44] LABS: Band 9 % (5-11); Eosinophils 1 % (0-10); Lymphocytes 32 % (21-51); MDiff Complete? YES; Metamyelocyte 6 % (0-0); Monocytes 7 % (0-10); Myelocyte 3 % (0-0); Neutrophil 42 % (42-75); Nucleated RBC 3 % (0); PLT Morphology Comment Appears Decreased; Polychromasia MODERATE = 3-4 cells (100X) (0-2/hpf)
--- NOTE | 2017-08-22 12:25 | PRG ---
DATE OF SERVICE: 08/22/2017 SUBJECTIVE: Ms. Toney is doing well today. OBJECTIVE: LUNGS: Clear to auscultation. CARDIAC: Regular rate and rhythm without murmur or gallop. EXTREMITIES: Left arm fistula, good thrill and bruit. LABORATORY DATA: This morning, white count 13, hemoglobin 6.7, platelet count 40,000. Basic metabol ic profile stable for her renal failure. Still are awaiting Oncology input. Patient is ready for discharge once outpatient dialysis arrangeme nts are made.
[2017-08-22] MEDS ORDERED: Sterile Water 10 ML ONE (12:39)
--- NOTE | 2017-08-22 12:45 | PDOC.PN ---
- Subjective Encounter Start Date: 08/22/17 Encounter Start Time: 11:20 Subjective: no active bleeding from rectum or urethra, has some specks of blood when sh -: -e coughs up occasionally -: no sob or chest pain - Objective Resuscitation Status: Resuscitation Status DNR:Do Not Resuscitate MAR Reviewed: Yes Vital Signs & Weight: Vital Signs (12 hours) Temp Pulse Pulse Resp BP BP Pulse Ox 08/22/17 08:15 98.0 F 95 18 119/73 91 L 08/22/17 03:40 97.7 F 92 18 121/79 93 L 08/22/17 00:00 98.2 F 90 16 114/77 93 L 08/21/17 23:45 98.2 F 95 18 104/66 95 Weight Admit Weight 166 lb 8 oz Weight 161 lb 6.4 oz Most Recent Monitor Data Heart Rate from ECG 120 NIBP 118/72 I&O: 08/21/17 08/22/17 08/23/17 05:59 06:59 06:59 Intake Total Output Total Balance Result Diagrams: 08/22/17 08:47 08/22/17 08:13 Phys Exam - Physical Examination HEENT: PERRLA, moist MMs Neck: no JVD, supple Respiratory: no wheezing, no rales has echymosis over port insertion site Cardiovascular: RRR, no significant murmur Gastrointestinal: soft, non-tender, positive bowel sounds Musculoskeletal: no edema, pulses present Neurological: non-focal, moves all 4 limbs Psychiatric: A&O x 3 Dx/Plan (1) ESRD (end stage renal disease) on dialysis Code(s): N18.6 - END STAGE RENAL DISEASE; Z99.2 - DEPENDENCE ON RENAL DIALYSIS Status: Acute Comment: initiated on HD this admission (2) Pancytopenia Code(s): D61.818 - OTHER PANCYTOPENIA Status: Acute Comment: severe thrombocytopenia and anemia, ?DIC (3) breast cancer with metastasis Status: Acute (4) HTN (hypertension) Code(s): I10 - ESSENTIAL (PRIMARY) HYPERTENSION Status: Chronic Qualifiers: Hypertension type: essential hypertension Qualified Code(s): I10 - Essential (primary) hypertension (5) Anemia in CKD (chronic kidney disease) Code(s): N18.9 - CHRONIC KIDNEY DISEASE, UNSPECIFIED; D63.1 - ANEMIA IN CHRONIC KIDNEY DISEASE Status: Chronic Qualifiers: Chronic kidney disease stage: on chronic dialysis Qualified Code(s): N18.6 - End stage renal disease; D63.1 - Anemia in chronic kidney disease; D63.1 - Anemia in chronic kidney disease; Z99.2 - Dependence on renal dialysis; Z99.2 - Dependence on renal dialysis; Z99.2 - Dependence on renal dialysis; Z99.2 - Dependence on renal dialysis - Plan so far has recieved 3 units prbc and 1 of single donor platelets -: start steroids for now, platelets are 28 this am -: await hemeonc input and peripheral smear review from pathologist -: prognosis guarded, pt wants to be DNR -: outpt HD chair needs to be set up * . Review of Systems - Medications/Allergies Allergies/Adverse Reactions: Allergies Allergy/AdvReac Type Severity Reaction Status Date / Time No Known Drug Allergies Allergy Verified 08/17/17 16:48 Medications: Current Medications Acetaminophen (Tylenol) 1,000 mg PO QIDPRN PRN PRN Reason: Pain Last Admin: 08/19/17 22:05 Dose: 1,000 mg Amlodipine Besylate (Norvasc) 10 mg PO DAILY [facility] Last Admin: 08/22/17 09:12 Dose: 10 mg Cholecalciferol (Vitamin D3) 2,000 units PO QAM [facility] Last Admin: 08/22/17 09:11 Dose: 2,000 units Ferrous Sulfate (Feosol) 325 mg PO QAM[facility] Last Admin: 08/22/17 09:11 Dose: 325 mg Methylprednisolone Sodium Succinate (Solu-Medrol) 40 mg IVP Q6HR [facility] Metoprolol Tartrate (Lopressor) 50 mg PO BID [facility] Last Admin: 08/22/17 09:11 Dose: 50 mg Mometasone Furoate/Formoterol Fumar (Dulera 200 Mcg/5 Mcg Inhaler) 2 puff INH BID-RT [facility] Last Admin: 08/22/17 07:12 Dose: 2 puff Ondansetron HCl (Zofran Odt) 4 mg SL Q4H PRN PRN Reason: Nausea/Vomiting Pantoprazole Sodium (Protonix) 40 mg PO DAILY [facility] Last Admin: 08/22/17 09:12 Dose: 40 mg Sodium Chloride ([place] Nasal [place] 0.65%) 0 ml EA NARE PRN PRN PRN Reason: Nasal Dryness Sodium Chloride (Flush - Normal Saline) 10 ml IVF PRN PRN PRN Reason: Saline Flush Tramadol HCl (Ultram) 50 mg PO QIDPRN PRN PRN Reason: Mild-Moderate Pain (1-5) Last Admin: 08/20/17 09:09 Dose: 50 mg Tramadol HCl (Ultram) 100 mg PO BIDPRN PRN PRN Reason: Moderate to Severe Pain (6-10) Last Admin: 08/21/17 21:21 Dose: 100 mg
[2017-08-23 06:34] LABS: Hemoglobin 9.9 g/dL (12.0-16.0); Mean Corpuscular HGB CONC 34.6 g/dL (32.0-36.0); Mean Corpuscular Hemoglobin 29.4 pg (27.0-31.0); Mean Platelet Volume 12.7 fL (7.4-10.4); Platelet Count 23 thou/uL (130-400); RBC Distribution Width 13.7 % (11.5-14.5); Red Blood Cell (RBC) Count 3.38 mill/uL (4.20-5.40); White Blood Cell (WBC) Count 18.2 thou/uL (4.8-10.8)
--- NOTE | 2017-08-23 06:42 | PRG ---
DATE OF SERVICE: 08/22/2017 SUBJECTIVE: Patient was seen and examined at bedside and overnight events noted. Patient denies any shortness of breath or chest pain or palpitation. No history of nausea or vomiting or diarrhea or f ever or chills or cramps. OBJECTIVE: GENERAL: This is a well-built female in no apparent distress. VITAL SIGNS: Temperature 98, pulse 92, respiratory rate 18, blood pressure 116/73. HEENT: Atraumatic, normocephalic. Oral mucosa is moist. NECK: Supple. CARDIOVASCULAR: S1, S2 heard. Rate and rhythm regular. RESPIRATORY: Clear to auscultation. GASTROINTESTINAL: Abdomen is soft. MUSCULOSKELETAL: No tenderness. No edema. DERMATOLOGIC: No skin rash. NEUROLOGIC: Alert and awake and oriented x3. No focal neurologic deficits. Moving all the extremiti es. PSYCHIATRIC: Mood and affect normal. LABORATORY DATA: Potassium is 3.6, BUN is 51, creatinine 7.7. ASSESSMENT AND PLAN: 1. End-stage renal disease. Continue on hemodialysis as tolerated. 2. Edema. 3. Thrombocytopenia. Follow with Heme/Oncology. 4. Anemia. Continue Epogen. 5. We will continue on dialysis. No acute indication for dialysis today. We will continue on dialy sis Wednesday, Wednesday, and Wednesday.
[2017-08-23 06:47] LABS: Band 18 % (5-11); Eosinophils 1 % (0-10); Lymphocytes 20 % (21-51); MDiff Complete? YES; Metamyelocyte 1 % (0-0); Monocytes 6 % (0-10); Neutrophil 54 % (42-75); Nucleated RBC 3 % (0); PLT Morphology Comment Appears Decreased
[2017-08-23 07:03] LABS: ALT (SGPT) 24 U/L (8-55); AST (SGOT) 41 U/L (5-34); Albumin 3.7 g/dL (3.5-5.0); Alkaline Phosphatase 107 U/L (40-150); Anion Gap 18 mmol/L (10-20); BUN (Urea Nitrogen) 68 mg/dL (9.8-20.1); Bilirubin, Total 1.1 mg/dL (0.2-1.2); Calc. Creatinine Clearance 10 mL/min (70-130); Calcium 10.8 mg/dL (7.8-10.44); Carbon Dioxide 21 mmol/L (22-29); Chloride 102 mmol/L (98-107); Estimated GFR-MDRD 7; Globulin 3.6 g/dL (2.4-3.5); Glucose 143 mg/dL (70-105); Potassium 4.4 mmol/L (3.5-5.1); Protein, Total 7.3 g/dL (6.0-8.3); Sodium 137 mmol/L (136-145)
[2017-08-23] MEDS: Mometasone/Formoterol 120 PUFF INHALER INH SCH ×2 (07:59→19:55)
[2017-08-23] MEDS: Ferrous Sulfate 325 MG TAB PO SCH (08:56)
[2017-08-23] MEDS: Amlodipine 10 MG TAB PO SCH (08:58)
[2017-08-23] MEDS: Metoprolol Tartrate 50 MG TAB PO SCH ×2 (09:01→20:42)
[2017-08-23] MEDS ORDERED: Heparin 10,000 UNITS/ 10 ML VIAL ONE (10:00)
--- NOTE | 2017-08-23 11:11 | PRG ---
DATE OF SERVICE: 08/23/2017 SUBJECTIVE: This 51-year-old female being seen for end-stage renal disease. The patient denies any nausea, vomiting or chest pain. PHYSICAL EXAMINATION: GENERAL: Patient is awake, alert. VITAL SIGNS: Afebrile, pulse 92, breathing 16, blood pressure 123/84. HEAD/NECK: Normocephalic. Atraumatic. EYES: EOMI. No deformity. EARS: Clear. No ulcers. NOSE: Intact. No lesions. MOUTH: Clear. No discharge. THROAT: Clear. No exudate. LUNGS: Clear. No crackles. CARDIAC: S1, S2. No rub. ABDOMEN: Benign. BS+. GENITALIA/RECTUM: Jefferson absent. BACK/EXTREMITIES: Edema 0+ Ulcer- NEUROLOGICAL: Alert and motor intact. SKIN: Rash- Bruise- LYMPHATICS: Edema- Ulcer- LABORATORY DATA: Show hemoglobin 9.9 and potassium 4.6. ASSESSMENT AND PLAN: 1. Stage 6 chronic kidney disease, continue on hemodialysis. 2. Hypertension, stable. 3. Anemia, stable. 4. Medications based on glomerular filtration rate are appropriate.
--- NOTE | 2017-08-23 11:57 | PDOC.PN ---
- Subjective Encounter Start Date: 08/23/17 Encounter Start Time: 10:20 Subjective: is getting dialyzed now, no active bleeding anywhere -: feels better, no sob - Objective Resuscitation Status: Resuscitation Status DNR:Do Not Resuscitate MAR Reviewed: Yes Vital Signs & Weight: Vital Signs (12 hours) Temp Pulse Resp BP Pulse Ox 08/23/17 07:26 97.5 F L 92 20 123/84 100 08/23/17 03:45 97.6 F 84 18 107/72 100 08/23/17 00:44 92 L Weight Admit Weight 166 lb 8 oz Weight 161 lb 6.4 oz Most Recent Monitor Data Heart Rate from ECG 120 NIBP 118/72 I&O: 08/22/17 08/23/17 08/24/17 06:59 06:59 06:59 Intake Total 800 Balance 800 Result Diagrams: 08/23/17 06:27 08/23/17 06:27 Phys Exam - Physical Examination HEENT: PERRLA, moist MMs Neck: no JVD, supple Respiratory: no wheezing, no rales Cardiovascular: RRR, no significant murmur has echymosis over port insertion site Gastrointestinal: soft, non-tender, positive bowel sounds Musculoskeletal: no edema, pulses present Neurological: non-focal, moves all 4 limbs Psychiatric: A&O x 3 Dx/Plan (1) ESRD (end stage renal disease) on dialysis Code(s): N18.6 - END STAGE RENAL DISEASE; Z99.2 - DEPENDENCE ON RENAL DIALYSIS Status: Acute Comment: initiated on HD this admission (2) Pancytopenia Code(s): D61.818 - OTHER PANCYTOPENIA Status: Acute Comment: severe thrombocytopenia and anemia, DIC (3) breast cancer with metastasis Status: Acute (4) HTN (hypertension) Code(s): I10 - ESSENTIAL (PRIMARY) HYPERTENSION Status: Chronic Qualifiers: Hypertension type: essential hypertension Qualified Code(s): I10 - Essential (primary) hypertension (5) Anemia in CKD (chronic kidney disease) Code(s): N18.9 - CHRONIC KIDNEY DISEASE, UNSPECIFIED; D63.1 - ANEMIA IN CHRONIC KIDNEY DISEASE Status: Chronic Qualifiers: Chronic kidney disease stage: on chronic dialysis Qualified Code(s): N18.6 - End stage renal disease; D63.1 - Anemia in chronic kidney disease; D63.1 - Anemia in chronic kidney disease; Z99.2 - Dependence on renal dialysis; Z99.2 - Dependence on renal dialysis; Z99.2 - Dependence on renal dialysis; Z99.2 - Dependence on renal dialysis - Plan reviewed consult note on chart -: pt has pancytopenia sec to infiltration of bone/cullen by mets -: direct jefe is -ve, dc steroids -: to get chemotherapy likey today/am per onc advice -: platelets are 23 this am, dc plan per onc advice * . Review of Systems - Medications/Allergies Allergies/Adverse Reactions: Allergies Allergy/AdvReac Type Severity Reaction Status Date / Time No Known Drug Allergies Allergy Verified 08/17/17 16:48 Medications: Current Medications Acetaminophen (Tylenol) 1,000 mg PO QIDPRN PRN PRN Reason: Pain Last Admin: 08/19/17 22:05 Dose: 1,000 mg Amlodipine Besylate (Norvasc) 10 mg PO DAILY [facility] Last Admin: 08/23/17 08:58 Dose: Not Given Cholecalciferol (Vitamin D3) 2,000 units PO QAM [facility] Last Admin: 08/23/17 08:56 Dose: 2,000 units Ferrous Sulfate (Feosol) 325 mg PO QAM-[facility] Last Admin: 08/23/17 08:56 Dose: 325 mg Metoprolol Tartrate (Lopressor) 50 mg PO BID [facility] Last Admin: 08/23/17 09:01 Dose: Not Given Mometasone Furoate/Formoterol Fumar (Dulera 200 Mcg/5 Mcg Inhaler) 2 puff INH BID-RT [facility] Last Admin: 08/23/17 07:59 Dose: 2 puff Ondansetron HCl (Zofran Odt) 4 mg SL Q4H PRN PRN Reason: Nausea/Vomiting Pantoprazole Sodium (Protonix) 40 mg PO DAILY [facility] Last Admin: 08/23/17 08:56 Dose: 40 mg Sodium Chloride ([place] Nasal [place] 0.65%) 0 ml EA NARE PRN PRN PRN Reason: Nasal Dryness Sodium Chloride (Flush - Normal Saline) 10 ml IVF PRN PRN PRN Reason: Saline Flush Tramadol HCl (Ultram) 50 mg PO QIDPRN PRN PRN Reason: Mild-Moderate Pain (1-5) Last Admin: 08/20/17 09:09 Dose: 50 mg Tramadol HCl (Ultram) 100 mg PO BIDPRN PRN PRN Reason: Moderate to Severe Pain (6-10) Last Admin: 08/21/17 21:21 Dose: 100 mg
[2017-08-23] MEDS: traMADol HCl 50 MG TAB PO PRN (13:36)
[2017-08-23] MEDS: Acetaminophen 500 MG TAB PO PRN (17:49)
--- NOTE | 2017-08-23 20:55 | PRG ---
DATE OF SERVICE: 08/23/2017 Annie Toney has no complaints today, still are working towards outpatient dialysis. Exam is unchange d. White count 18,000, platelet count 23,000, hemoglobin 9.9. She is undergoing daily dialysis. We hav e consulted Oncology on the week end and they have not yet seen her. She has good thrill and bruit i n left arm fistula. We will consult Oncology Services again. Home when outpatient dialysis is [facility].
[2017-08-24 03:38] LABS: Platelet Count 24 thou/uL (130-400)
[2017-08-24 03:58] LABS: Band 10 % (5-11); Eosinophils 1 % (0-10); Hemoglobin 10.3 g/dL (12.0-16.0); Lymphocytes 18 % (21-51); MDiff Complete? YES; Mean Corpuscular HGB CONC 35.4 g/dL (32.0-36.0); Mean Corpuscular Volume 84.8 fl (81.0-99.0); Mean Platelet Volume 13.2 fL (7.4-10.4); Metamyelocyte 8 % (0-0); Monocytes 7 % (0-10); Myelocyte 3 % (0-0); Neutrophil 53 % (42-75); Nucleated RBC 6 % (0); PLT Morphology Comment Appears Decreased; RBC Distribution Width 14.3 % (11.5-14.5); RBC Morphology Normal; Red Blood Cell (RBC) Count 3.43 mill/uL (4.20-5.40); White Blood Cell (WBC) Count 20.5 thou/uL (4.8-10.8)
[2017-08-24] MEDS: Mometasone/Formoterol 120 PUFF INHALER INH SCH ×2 (07:14→19:40)
[2017-08-24] MEDS: Ferrous Sulfate 325 MG TAB PO SCH (08:18)
[2017-08-24] MEDS: Amlodipine 10 MG TAB PO SCH (08:19)
[2017-08-24] MEDS: Metoprolol Tartrate 50 MG TAB PO SCH ×2 (08:20→20:52)
--- NOTE | 2017-08-24 09:48 | PRG ---
DATE OF SERVICE: 08/24/2017 SUBJECTIVE: This is a 51-year-old female being seen for end-stage renal disease. The patient denies any nausea, vomiting or chest pain. PHYSICAL EXAMINATION: GENERAL: Patient is awake, alert. VITAL SIGNS: Afebrile, pulse 90, breathing 16, blood pressure 113/67. OBJECTIVE: See above. Awake, alert, in no acute distress. GENERAL APPEARANCE AND MENTAL STATUS: Fair. HEAD/NECK: Normocephalic. Atraumatic. EYES: EOMI. No deformity. EARS: Clear. No ulcers. NOSE: Intact. No lesions. MOUTH: Clear. No discharge. THROAT: Clear. No exudate. LUNGS: Clear. No crackles. CARDIAC: S1, S2. No rub. ABDOMEN: Benign. BS+. GENITALIA/RECTUM: Jefferson absent. BACK/EXTREMITIES: Edema 0+ Ulcer- NEUROLOGICAL: Alert and motor intact. SKIN: Rash- Bruise- LYMPHATICS: Edema- Ulcer- LABORATORY: Hemoglobin is 10.3, creatinine 7.65. ASSESSMENT AND RECOMMENDATIONS: 1. Stage 6 chronic kidney disease on hemodialysis Wednesday, Wednesday, Wednesday. 2. Hypertension, stable. 3. Anemia, stable. 4. Medication based on glomerular filtration rate are appropriate. 5. Thrombocytopenia, avoid heparin.
[2017-08-24] MEDS: traMADol HCl 50 MG TAB PO PRN (14:54)
[2017-08-24] MEDS: Ondansetron ODT 4 MG TAB SL PRN (15:26)
--- NOTE | 2017-08-24 15:38 | PDOC.PN ---
- Subjective Encounter Start Date: 08/24/17 Encounter Start Time: 10:00 Subjective: feels better, no bleeding per urethra or rectum -: wants to start chemo and see how her numbers go - Objective Resuscitation Status: Resuscitation Status DNR:Do Not Resuscitate MAR Reviewed: Yes Vital Signs & Weight: Vital Signs (12 hours) Temp Pulse Resp BP BP BP Pulse Ox 08/24/17 15:14 97.7 F 97 18 132/80 92 L 08/24/17 12:03 98.0 F 93 14 104/72 92 L 08/24/17 08:19 90 113/67 08/24/17 08:18 97.9 F 92 14 113/67 91 L 08/24/17 08:09 97.9 F 90 14 91 L 08/24/17 04:19 97.6 F 94 18 139/75 95 Weight Admit Weight 166 lb 8 oz Weight 161 lb 6.4 oz Most Recent Monitor Data Heart Rate from ECG 120 NIBP 118/72 I&O: 08/23/17 08/24/17 08/25/17 06:59 06:59 06:59 Intake Total 800 717 Balance 800 717 Result Diagrams: 08/24/17 03:26 08/23/17 06:27 Phys Exam - Physical Examination HEENT: PERRLA, moist MMs Neck: no JVD, supple Respiratory: no wheezing, no rales large echymosis around port placement area Cardiovascular: RRR, no significant murmur Gastrointestinal: soft, non-tender, positive bowel sounds Musculoskeletal: no edema, pulses present Neurological: non-focal, moves all 4 limbs Psychiatric: A&O x 3 Dx/Plan (1) ESRD (end stage renal disease) on dialysis Code(s): N18.6 - END STAGE RENAL DISEASE; Z99.2 - DEPENDENCE ON RENAL DIALYSIS Status: Acute Comment: initiated on HD this admission (2) Pancytopenia Code(s): D61.818 - OTHER PANCYTOPENIA Status: Acute Comment: severe thrombocytopenia and anemia, DIC (3) breast cancer with metastasis Status: Acute (4) HTN (hypertension) Code(s): I10 - ESSENTIAL (PRIMARY) HYPERTENSION Status: Chronic Qualifiers: Hypertension type: essential hypertension Qualified Code(s): I10 - Essential (primary) hypertension (5) Anemia in CKD (chronic kidney disease) Code(s): N18.9 - CHRONIC KIDNEY DISEASE, UNSPECIFIED; D63.1 - ANEMIA IN CHRONIC KIDNEY DISEASE Status: Chronic Qualifiers: Chronic kidney disease stage: on chronic dialysis Qualified Code(s): N18.6 - End stage renal disease; D63.1 - Anemia in chronic kidney disease; D63.1 - Anemia in chronic kidney disease; Z99.2 - Dependence on renal dialysis; Z99.2 - Dependence on renal dialysis; Z99.2 - Dependence on renal dialysis; Z99.2 - Dependence on renal dialysis - Plan d/w , will start her on chemo -: tx to onc floor -: PT to mobilize her as tolerated -: platelets are low and around 24 -: elevated wbc likely due to steroids, needs outpt HD chair * . Review of Systems - Medications/Allergies Allergies/Adverse Reactions: Allergies Allergy/AdvReac Type Severity Reaction Status Date / Time No Known Drug Allergies Allergy Verified 08/17/17 16:48 Medications: Current Medications Acetaminophen (Tylenol) 1,000 mg PO QIDPRN PRN PRN Reason: Pain Last Admin: 08/23/17 17:49 Dose: 1,000 mg Amlodipine Besylate (Norvasc) 10 mg PO DAILY [facility] Last Admin: 08/24/17 08:19 Dose: 10 mg Cholecalciferol (Vitamin D3) [facility] [place] Last Admin: 08/24/17 08:18 Dose: 2,000 units Ferrous Sulfate (Feosol) 325 mg PO QAM-[facility] Last Admin: 08/24/17 08:18 Dose: 325 mg Metoprolol Tartrate (Lopressor) 50 mg PO BID [facility] Last Admin: 08/24/17 08:20 Dose: 50 mg Mometasone Furoate/Formoterol Fumar (Dulera 200 Mcg/5 Mcg Inhaler) 2 puff INH BID-RT [facility] Last Admin: 08/24/17 07:14 Dose: 2 puff Ondansetron HCl (Zofran Odt) 4 mg SL Q4H PRN PRN Reason: Nausea/Vomiting Last Admin: 08/24/17 15:26 Dose: 4 mg Pantoprazole Sodium (Protonix) 40 mg PO DAILY [facility] Last Admin: 08/24/17 08:20 Dose: 40 mg Sodium Chloride ([place] Nasal [place] 0.65%) 0 ml EA NARE PRN PRN PRN Reason: Nasal Dryness Sodium Chloride (Flush - Normal Saline) 10 ml IVF PRN PRN PRN Reason: Saline Flush Tramadol HCl (Ultram) 50 mg PO QIDPRN PRN PRN Reason: Mild-Moderate Pain (1-5) Last Admin: 08/20/17 09:09 Dose: 50 mg Tramadol HCl (Ultram) 100 mg PO BIDPRN PRN PRN Reason: Moderate to Severe Pain (6-10) Last Admin: 08/24/17 14:54 Dose: 100 mg
--- NOTE | 2017-08-24 17:06 | PRG ---
DATE OF SERVICE: 08/24/2017 HISTORY: Ms. Annie Toney is doing well today. Her left forearm surgical site has a small hematoma, but her fistula has a good thrill and bruit. Her MediPort is functioning well, hemodialysis catheter is functioning well. Her platelets remain low with 23,000 yesterday and 24,000 today. Hemoglobin i s stable at 10.3. I talked to Dr. Coronado and her thrombocytopenia is probably related to her breast cancer and bone marrow problems. She is undergoing dialysis. She has been moved to the oncology [facility] to have dialysis in the morning and I have chemotherapy afterwards. She can be discharged home a fter chemotherapy. She should exercise her left arm. She should follow up with me in about 3-4 week s. MediPort will be decannulated after chemotherapy administration.
[2017-08-25 05:57] LABS: Hemoglobin 9.6 g/dL (12.0-16.0); Mean Corpuscular HGB CONC 33.5 g/dL (32.0-36.0); Mean Corpuscular Hemoglobin 29.3 pg (27.0-31.0); Mean Corpuscular Volume 87.4 fl (81.0-99.0); Platelet Count 18 thou/uL (130-400); RBC Distribution Width 14.4 % (11.5-14.5); Red Blood Cell (RBC) Count 3.28 mill/uL (4.20-5.40); White Blood Cell (WBC) Count 16.9 thou/uL (4.8-10.8)
[2017-08-25] MEDS ORDERED: PACLitaxel 140 MG in Sodium Chloride 0.9% 250 ML 250 ML IVPB SCH (06:00)
[2017-08-25] MEDS ORDERED: Dexamethasone 10 MG in Sodium Chloride 0.9% 50 ML IVPB SCH (06:00)
[2017-08-25] MEDS: Mometasone/Formoterol 120 PUFF INHALER INH SCH ×2 (06:05→19:31)
[2017-08-25 06:17] LABS: Band 16 % (5-11); Lymphocytes 31 % (21-51); MDiff Complete? YES; Metamyelocyte 1 % (0-0); Monocytes 5 % (0-10); Neutrophil 47 % (42-75); Nucleated RBC 9 % (0); PLT Morphology Comment Appears Decreased
--- NOTE | 2017-08-25 08:24 | PRG ---
DATE OF SERVICE: 08/25/2017 SUBJECTIVE: This 51-year-old female being seen for end-stage renal disease. The patient denies any nausea, vomiting or chest pain. PHYSICAL EXAMINATION: GENERAL: Patient is awake, alert. VITAL SIGNS: Afebrile, pulse 115, breathing 16, blood pressure 104/50. OBJECTIVE: See above. Awake, alert, in no acute distress. GENERAL APPEARANCE AND MENTAL STATUS: Fair. HEAD/NECK: Normocephalic. Atraumatic. EYES: EOMI. No deformity. EARS: Clear. No ulcers. NOSE: Intact. No lesions. MOUTH: Clear. No discharge. THROAT: Clear. No exudate. LUNGS: Clear. No crackles. CARDIAC: S1, S2. No rub. ABDOMEN: Benign. BS+. GENITALIA/RECTUM: Jefferson absent. BACK/EXTREMITIES: Edema 0+ Ulcer- NEUROLOGICAL: Alert and motor intact. SKIN: Rash- Bruise- LYMPHATICS: Edema- Ulcer- LABORATORY: Hemoglobin 9.6. ASSESSMENT AND RECOMMENDATIONS: 1. Stage 6 chronic kidney disease. We will plan dialysis today. 2. Hypertension, stable. 3. Anemia, stable. 4. Medication based on glomerular filtration rate are appropriate.
[2017-08-25] MEDS: Amlodipine 10 MG TAB PO SCH (08:31)
[2017-08-25] MEDS: Ferrous Sulfate 325 MG TAB PO SCH (08:31)
[2017-08-25] MEDS: Metoprolol Tartrate 50 MG TAB PO SCH ×2 (08:31→21:27)
[2017-08-25] MEDS: traMADol HCl 50 MG TAB PO PRN ×2 (09:02→21:30)
[2017-08-25] MEDS: Ondansetron ODT 4 MG TAB SL PRN ×2 (09:05→21:00)
--- NOTE | 2017-08-25 09:28 | PDOC.PN ---
- Subjective Encounter Start Date: 08/25/17 Encounter Start Time: 13:50 Subjective: Patient nauseated and weak, unable to ambulate due to weakness and nausea -: with trying to stand up. - Objective Resuscitation Status: Resuscitation Status DNR:Do Not Resuscitate MAR Reviewed: Yes Vital Signs & Weight: Vital Signs (12 hours) Temp Pulse Resp BP Pulse Ox 08/25/17 08:31 115 H 08/25/17 08:01 99.5 F 115 H 20 104/58 L 93 L 08/25/17 06:05 95 16 94 L Weight Admit Weight 166 lb 8 oz Weight 161 lb 6.4 oz Most Recent Monitor Data Heart Rate from ECG 120 NIBP 118/72 I&O: 08/24/17 08/25/17 08/26/17 06:59 06:59 06:59 Intake Total 717 240 Balance 717 240 Result Diagrams: 08/25/17 05:30 08/23/17 06:27 Phys Exam - Physical Examination Constitutional: NAD HEENT: moist MMs Respiratory: no wheezing, no rales, no rhonchi Cardiovascular: RRR Gastrointestinal: soft, non-tender, positive bowel sounds Neurological: non-focal Psychiatric: normal affect, A&O x 3 Deviation from normal: very tired but arousable Dx/Plan (1) ESRD (end stage renal disease) on dialysis Code(s): N18.6 - END STAGE RENAL DISEASE; Z99.2 - DEPENDENCE ON RENAL DIALYSIS Status: Acute Comment: initiated on HD this admission (2) Pancytopenia Code(s): D61.818 - OTHER PANCYTOPENIA Status: Acute Comment: severe thrombocytopenia and anemia, Dr. Coronado following (3) breast cancer with metastasis Status: Acute Comment: Chemotherapy before discharge (4) HTN (hypertension) Code(s): I10 - ESSENTIAL (PRIMARY) HYPERTENSION Status: Chronic Qualifiers: Hypertension type: essential hypertension Qualified Code(s): I10 - Essential (primary) hypertension (5) Anemia in CKD (chronic kidney disease) Code(s): N18.9 - CHRONIC KIDNEY DISEASE, UNSPECIFIED; D63.1 - ANEMIA IN CHRONIC KIDNEY DISEASE Status: Chronic Qualifiers: Chronic kidney disease stage: on chronic dialysis Qualified Code(s): N18.6 - End stage renal disease; D63.1 - Anemia in chronic kidney disease; D63.1 - Anemia in chronic kidney disease; Z99.2 - Dependence on renal dialysis; Z99.2 - Dependence on renal dialysis; Z99.2 - Dependence on renal dialysis; Z99.2 - Dependence on renal dialysis - Plan cont current plan of care, PT/OT will hold on d/c due to unable to ambulate, family to decide if they can -: manage at home, or if will need rehab (though can't do chemo there). * . - Discharge Day Encounter end time: 14:10
--- NOTE | 2017-08-25 13:17 | DIS ---
DATE OF ADMISSION: 08/18/2017 DATE OF DISCHARGE: 08/25/2017 DISCHARGE DIAGNOSES: 1. Metastatic breast cancer. 2. Thrombocytopenia/pancytopenia. 3. End-stage renal disease. 4. Gastroesophageal reflux disease. 5. Chronic obstructive pulmonary disease and emphysema, on home oxygen. PROCEDURES IN THIS HOSPITALIZATION: The patient was brought in for hemodialysis access in a MediPort . Dr. Murguia was performing the MediPort. Once I saw her, I performed both. Dr. Ace performed a MediPort placement, hemodialysis catheter, left arm fistula placement. Postoperatively, she was dy spneic and was admitted. Dr. Quiñones saw her and initiated dialysis. She was noted to be thrombocyt openic. Dr. Coronado saw her initiated chemotherapy. The patient's dialysis chair was arranged and s he is ready for discharge home. She will resume her home oxygen. Medications, she will follow up jamie abdi in about four weeks and Dr. Coronado next week for outpatient chemotherapy. She did undergo a d ialysis today. We will receive chemotherapy today and to be discharged home. DISCHARGE MEDICATIONS: Tramadol, vitamin D3, Prilosec, iron, metoprolol 50 b.i.d., amlodipine 10 nicol ly, inhalers, home oxygen.
--- NOTE | 2017-08-25 13:22 | PRG ---
DATE OF SERVICE: 08/25/2017 SUBJECTIVE: Annie Toney is doing well today. She is undergoing dialysis after which she will have c hemotherapy. I have talked to Dr. Coronado and he states that she will go home after chemotherapy. OBJECTIVE: VITAL SIGNS: 99.5 degrees, heart rate 110, and respiratory rate 20. LUNGS: Clear to auscultation. CARDIAC: Regular rate and rhythm without murmur or gallop. ABDOMEN: Soft. A good thrill. EXTREMITIES: Left arm fistula. LABORATORY DATA: Platelet count 18,000, Dr. Coronado is aware of this. Hemoglobin 9.6, white count 1 6. ASSESSMENT AND PLAN: 1. End-stage renal disease on dialysis, dialysis outpatient chair arranged. 2. Metastatic breast cancer chemotherapy access functional and Dr. Coronado will see her next week fo r an appointment.
[2017-08-25] MEDS: Acetaminophen 500 MG TAB PO PRN (13:34)
[2017-08-25] MEDS ORDERED: Sodium Chloride 0.9% 250 ML IV SCH (15:30)
[2017-08-25] MEDS ORDERED: Dextrose 50% Abboject 50 ML SYRINGE ONE (18:00)
--- NOTE | 2017-08-25 18:09 | PDOC.EVN ---
Event Note - Event Note Event Note: Jason Gomez called, came to patient's bedside. Nurse reported she became less responsive. They were unable to get a blood pressure reading. Still breathing deeply. Unable to get O2 sat. Had some low BP earlier in the afternoon and given 250cc of NS with recent bp 100/50s before this episode. No evidence bleeding. Patient able to respond to me with weak voice. Denied pain, just feeling weak and a bit nauseous. BS 60s. Giving fluids. Will move to unit and start Levophed. Patient ESRD so will need to watch closely for fluid overload.
[2017-08-25] MEDS ORDERED: Sodium Chloride 0.9% 1,000 ML IV SCH ×2 (18:15→22:00)
[2017-08-25] MEDS: Norepinephrine 8 MG/0.9% NS 250 ML IVPB SCH (18:45)
[2017-08-25 19:03] VITALS: BP 84/51
[2017-08-25 19:05] LABS: Anion Gap 34 mmol/L (10-20); BUN (Urea Nitrogen) 43 mg/dL (9.8-20.1); Calc. Creatinine Clearance 17 mL/min (70-130); Calcium 9.9 mg/dL (7.8-10.44); Carbon Dioxide 11 mmol/L (22-29); Chloride 97 mmol/L (98-107); Estimated GFR-MDRD 12; Glucose 246 mg/dL (70-105); Potassium 5.1 mmol/L (3.5-5.1); Sodium 137 mmol/L (136-145)
[2017-08-25 19:10] LABS: CKMB 1.4 ng/mL (0-6.6); Troponin I 0.103 ng/mL (< 0.028)
[2017-08-25 19:12] LABS: Platelet Count 18 thou/uL (130-400)
[2017-08-25 19:26] LABS: Anisocytosis SLIGHT = 6-15 cells (100X) (0-5/hpf); Band 3 % (5-11); Eosinophils 1 % (0-10); Hemoglobin 8.6 g/dL (12.0-16.0); Lymphocytes 35 % (21-51); MDiff Complete? YES; Mean Corpuscular HGB CONC 32.7 g/dL (32.0-36.0); Mean Corpuscular Hemoglobin 29.8 pg (27.0-31.0); Mean Platelet Volume 15.3 fL (7.4-10.4); Metamyelocyte 2 % (0-0); Monocytes 3 % (0-10); Neutrophil 55 % (42-75); Nucleated RBC 15 % (0); PLT Morphology Comment Appears Decreased; Polychromasia SLIGHT = 2-3 cells (100X) (0-2/hpf); Reactive Lymphocytes 1 % (0-10); Red Blood Cell (RBC) Count 2.88 mill/uL (4.20-5.40); White Blood Cell (WBC) Count 29.9 thou/uL (4.8-10.8)
[2017-08-25] MEDS ORDERED: Vancomycin HCl 1 GM in Premix Bag 1 BAG IVPB SCH (19:30)
[2017-08-25] MEDS ORDERED: VANCOMYCIN IVPB PRN (19:33)
[2017-08-25] MEDS: Piperacillin/Tazobactam 2.25 GM in Sodium Chloride 0.9% 100 ML IVPB SCH (21:00)
[2017-08-26 00:41] LABS: Lactic Acid 11.4 mmol/L (0.5-2.2)
[2017-08-26] MEDS: Piperacillin/Tazobactam 2.25 GM in Sodium Chloride 0.9% 100 ML IVPB SCH (04:27)
[2017-08-26] MEDS: Norepinephrine 8 MG/0.9% NS 250 ML IVPB SCH (04:37)
[2017-08-26 04:51] VITALS: TEMP 98
[2017-08-26 05:21] LABS: Anion Gap 32 mmol/L (10-20); BUN (Urea Nitrogen) 61 mg/dL (9.8-20.1); Calc. Creatinine Clearance 14 mL/min (70-130); Calcium 9.9 mg/dL (7.8-10.44); Carbon Dioxide 12 mmol/L (22-29); Chloride 100 mmol/L (98-107); Estimated GFR-MDRD 10; Glucose 109 mg/dL (70-105); Potassium 5.9 mmol/L (3.5-5.1); Sodium 138 mmol/L (136-145)
[2017-08-26 06:06] LABS: Anisocytosis SLIGHT = 6-15 cells (100X) (0-5/hpf); Band 8 % (5-11); Hemoglobin 8.9 g/dL (12.0-16.0); Lymphocytes 44 % (21-51); MDiff Complete? YES; Mean Corpuscular HGB CONC 33.8 g/dL (32.0-36.0); Mean Corpuscular Hemoglobin 30.3 pg (27.0-31.0); Mean Corpuscular Volume 89.6 fl (81.0-99.0); Monocytes 16 % (0-10); Neutrophil 32 % (42-75); Nucleated RBC 7 % (0); PLT Morphology Comment Appears Decreased; Platelet Count 22 thou/uL (130-400); RBC Distribution Width 14.9 % (11.5-14.5); Red Blood Cell (RBC) Count 2.92 mill/uL (4.20-5.40); Schistocytes SLIGHT = 2-5 cells (100X) (0-1/hpf); White Blood Cell (WBC) Count 42.4 thou/uL (4.8-10.8)
[2017-08-26] MEDS ORDERED: Albumin 25% 25 GM/100 ML BOT IVPB SCH (08:02)
[2017-08-26] MEDS: Mometasone/Formoterol 120 PUFF INHALER INH SCH (08:05)
--- NOTE | 2017-08-26 08:54 | RAD ---
PORTABLE CHEST 1 VIEW: Date: 08/26/17 Time: 0806 hours HISTORY: Respiratory failure. FINDINGS: Comparison made with exam of 08/20/17. Left-sided dialysis catheter and right-sided MediPort catheter positions are unchanged. The heart siz e is normal. The lungs are expanded with new patchy infiltrates in the lungs bilaterally, right great er than left. No pneumothoraces or pleural effusions are seen. IMPRESSION: Findings are suspicious for pneumonia. POS: [facility]
[2017-08-26] MEDS ORDERED: Cefepime 0.5 GM in Sodium Chloride 0.9% 100 ML IVPB SCH (09:00)
[2017-08-26] MEDS ORDERED: Vancomycin HCl 750 MG in Sodium Chloride 0.9% 250 ML 250 ML IVPB SCH ×2 (09:45→21:00)
[2017-08-26] MEDS ORDERED: Vancomycin HCl 1 GM in Premix Bag 1 BAG IVPB SCH (09:45)
[2017-08-26] MEDS ORDERED: Vancomycin HCl 1.25 GM in Sodium Chloride 0.9% 250 ML 250 ML IVPB SCH (09:45)
[2017-08-26] MEDS ORDERED: HOLD VANCOMYCIN FOR LEVEL >20 FS SCH (09:45)
[2017-08-26] MEDS ORDERED: Vancomycin HCl 500 MG in Sodium Chloride 0.9% 100 ML IVPB SCH (09:45)
--- NOTE | 2017-08-26 10:18 | PDOC.PN ---
- Subjective Encounter Start Date: 08/26/17 Encounter Start Time: 10:00 Subjective: Patient at 0946. Became acutely SOB on dialysis and then BP -: dropped and lost pulse and stopped breathing. - Objective Resuscitation Status: Resuscitation Status DNR:Do Not Resuscitate MAR Reviewed: Yes Vital Signs & Weight: Vital Signs (12 hours) Temp Pulse Resp Pulse Ox 08/26/17 08:09 92 L 08/26/17 08:00 98.0 F 106 H 34 H 89 L 08/26/17 04:00 98.0 F 08/26/17 00:00 97.6 F Weight Admit Weight 166 lb 8 oz Weight 161 lb 6.054 oz Most Recent Monitor Data Heart Rate from ECG 104 NIBP 110/77 NIBP BP-Mean 87 Respiration from ECG 29 SpO2 91 I&O: 08/25/17 08/26/17 08/27/17 06:59 06:59 06:59 Intake Total 240 2325 Output Total 0 Balance 240 2325 Result Diagrams: 08/26/17 04:40 08/26/17 04:40 Additional Labs: Accuchecks 08/26/17 08/25/17 04:42 18:01 POC Glucose 134 H 61 L Dx/Plan (1) Septic shock Code(s): A41.9 - SEPSIS, UNSPECIFIED ORGANISM; R65.21 - SEVERE SEPSIS WITH SEPTIC SHOCK Status: Acute Comment: Leukocytosis, hypotension requiring pressors, on broad spectrum abx, pulmonology consulted. Patient is DNR. (2) ESRD (end stage renal disease) on dialysis Code(s): N18.6 - END STAGE RENAL DISEASE; Z99.2 - DEPENDENCE ON RENAL DIALYSIS Status: Acute Comment: initiated on HD this admission (3) Pancytopenia Code(s): D61.818 - OTHER PANCYTOPENIA Status: Acute Comment: severe thrombocytopenia and anemia, Dr. Coronado following (4) breast cancer with metastasis Status: Acute Comment: Chemotherapy held due to hypotension (5) HTN (hypertension) Code(s): I10 - ESSENTIAL (PRIMARY) HYPERTENSION Status: Chronic Qualifiers: Hypertension type: essential hypertension Qualified Code(s): I10 - Essential (primary) hypertension (6) Anemia in CKD (chronic kidney disease) Code(s): N18.9 - CHRONIC KIDNEY DISEASE, UNSPECIFIED; D63.1 - ANEMIA IN CHRONIC KIDNEY DISEASE Status: Chronic Qualifiers: Chronic kidney disease stage: on chronic dialysis Qualified Code(s): N18.6 - End stage renal disease; D63.1 - Anemia in chronic kidney disease; D63.1 - Anemia in chronic kidney disease; Z99.2 - Dependence on renal dialysis; Z99.2 - Dependence on renal dialysis; Z99.2 - Dependence on renal dialysis; Z99.2 - Dependence on renal dialysis - Plan Discharge to home. * .
--- NOTE | 2017-08-26 10:19 | PRG ---
DATE OF SERVICE: 08/26/2017 SUBJECTIVE: This is a 51-year-old female being seen for end-stage renal disease : The patient became hypotensive, was shifted to the ICU. Her potassium also samy. She had dialysis yesterday. The patient is very somnolent and agitated and is on pressors. PHYSICAL EXAMINATION: GENERAL: Patient is resting, in mild to moderate distress. VITAL SIGNS: Afebrile, pulse 116, breathing 16, blood pressure 110/77. OBJECTIVE: See above. Awake, alert, in no acute distress. GENERAL APPEARANCE AND MENTAL STATUS: Fair. HEAD/NECK: Normocephalic. Atraumatic. EYES: EOMI. No deformity. EARS: Clear. No ulcers. NOSE: Intact. No lesions. MOUTH: Clear. No discharge. THROAT: Clear. No exudate. LUNGS: Clear. No crackles. CARDIAC: S1, S2. No rub. ABDOMEN: Benign. BS+. GENITALIA/RECTUM: [place] absent. BACK/EXTREMITIES: Edema 0+ Ulcer- NEUROLOGICAL: Very agitated and restless, sats are in the 70s-80s. SKIN: Rash- Bruise- LYMPHATICS: Edema- Ulcer- LABORATORY: Potassium 5.9, creatinine 5.3. ASSESSMENT AND RECOMMENDATIONS: 1. Stage 6 chronic kidney disease. We will plan dialysis. 2. Hyperkalemia. Risks versus benefits of dialysis were discussed with the patient's son. Her prognosis was poor and discussed with son. 3. Metabolic acidosis versus other etiology. I will recommend a blood gas. 4. Anemia, stable. 5. Medication based on glomerular filtration rate are appropriate. MTDD
--- NOTE | 2017-08-26 10:26 | CON ---
DATE OF CONSULTATION: 08/26/2017 HISTORY: This is a 51-year-old DNR patient was transferred last night to the ICU because she was hyp ertensive. She has known history of metastatic breast cancer, recently underwent an access for presu med dialysis. She was started on Levophed after she was given a volume bolus. She was here recently in the hospital in July. The patient is a lifelong nonsmoker. She denies any chest pain, chills or sweats. Her x-ray on admission surprisingly was normal. Though presently she is on a nonrebreather. Her sat s are 91-92%. PAST MEDICAL HISTORY: Hypertension, renal disease, metastatic breast cancer. PAST SURGICAL HISTORY: Gallbladder, hysterectomy, , access, MediPort. MEDICATIONS FROM HOME; Tramadol, omeprazole, iron, metoprolol 50 twice a day, amlodipine 10, Dulera. ALLERGIES: None. SOCIAL/FAMILY HISTORY: As noted no alcohol or tobacco. REVIEW OF SYSTEMS: Otherwise 10 point negative. PHYSICAL EXAMINATION: VITAL SIGNS: Blood pressure 110/70, sats are 90%, respiration rate 18, pulse 80. LUNGS: Chest revealed decreased breath sounds without any wheezing. CARDIAC: Normal S1, S2, no gallops. ABDOMEN: Soft, no mass. NEUROLOGIC: She is awake, responsive. Clearly she is very tachypneic and tachycardic. White count 14,000, H&H 8 and 26, platelet count is low at 22, creatinine is 5, BUN 61. Lactic acid is 30.6. IMPRESSION: 1. Marked leukocytosis, possibly sepsis. 2. Metastatic breast cancer. 3. Respiratory failure. 4. Renal failure. PLAN: Vancomycin, Zosyn, Maxipime on board along with steroids as for renal failure. Steroids and n eb treatments. Prognosis is grave. She is not to be intubated. Forty-five minutes critical care time.
[2017-08-26] MEDS: Ferrous Sulfate 325 MG TAB PO SCH (11:30)
[2017-08-26] MEDS: Amlodipine 10 MG TAB PO SCH (11:30)
[2017-08-26] MEDS: Metoprolol Tartrate 50 MG TAB PO SCH (11:32)
[2017-08-26] MEDS ORDERED: methylPREDNISolone Sod Succ/PF 125 MG/2 ML VIAL IVP SCH (12:00)
[2017-08-26] MEDS ORDERED: Heparin 10,000 UNITS/ 10 ML VIAL ONE (13:45)
--- NOTE | 2017-08-26 22:22 | DS ---
REASON FOR ADMISSION: Need for hemodialysis catheter placement and fistula to initiate hemodialysis CAUSE OF : Septic shock. CONTRIBUTING FACTORS: Pancytopenia secondary to breast cancer with metastasis and end-stage renal di sease on dialysis. SUMMARY OF HOSPITAL COURSE: This was a 51-year-old female who had been diagnosed wi th metastatic left breast cancer as well as end-stage renal disease. She was admitted by Dr. Ace for placement of a dialysis catheter as well as to put an AV fistula. During hospitalization, she di d have initiation of hemodialysis. She was also going to be started on chemotherapy. The patient di d not tolerate the dialysis well and eventually we were unable to get fluid off of her the day before she in dialysis, she was also noted to be increasingly weak and nauseated with movement and megha motherapy was held for this reason. The patient also had a very low platelet count and a drop in hem oglobin also thought to be due to her breast cancer and then her white blood cell count started to tr end up over the last couple of hospital days spiking to 42,000 the day she . She had a drop in h er blood pressure, initially responded with fluids, but then continued to drop and she had to be admi tted to the ICU and put on Levophed. Patient did make herself a DNR. The day of her , she was put on dialysis, became acutely short of breath during dialysis at which point was immediately stoppe d. Then, her blood pressure dropped acutely and she stopped breathing and lost her pulse. Time of d eath was 0946 hours on 08/26/2017. No autopsy to be performed, body discharge to the parlor.
== END 2017-08-26 09:46 | disposition expired | DRG 673 ==
LOC: SDC 12:48 → SURG A 21:10 → OBSVTOIN 21:10 → ONC 08-24 14:55 → CCU 08-25 18:05
PROVIDERS: ADMIT Specialist; ATTEND Specialist
PROC: 0JH60WZ Insertion of Totally Implantable Vascular Access Device into Chest Subcutaneous Tissue and Fascia, Open Approach (ICD-10-PCS; principal; 2017-08-18)
PROC: 031C09F Bypass Left Radial Artery to Lower Arm Vein with Autologous Venous Tissue, Open Approach (ICD-10-PCS; 2017-08-18)
PROC: 02HV33Z Insertion of Infusion Device into Superior Vena Cava, Percutaneous Approach (ICD-10-PCS; 2017-08-18)
PROC: B54PZZZ Ultrasonography of Bilateral Upper Extremity Veins (ICD-10-PCS; 2017-08-18)
PROC: 5A1D70Z Performance of Urinary Filtration, Intermittent, Less than 6 Hours Per Day (ICD-10-PCS; 2017-08-19)
PROC: 5A1D70Z Performance of Urinary Filtration, Intermittent, Less than 6 Hours Per Day (ICD-10-PCS; 2017-08-20)
PROC: 5A1D70Z Performance of Urinary Filtration, Intermittent, Less than 6 Hours Per Day (ICD-10-PCS; 2017-08-23)
PROC: 5A1D70Z Performance of Urinary Filtration, Intermittent, Less than 6 Hours Per Day (ICD-10-PCS; 2017-08-25)
PROC: 5A1D70Z Performance of Urinary Filtration, Intermittent, Less than 6 Hours Per Day (ICD-10-PCS; 2017-08-26)
DX: I12.0 Hypertensive chronic kidney disease with stage 5 chronic kidney disease or end stage renal disease (principal); A41.9 Sepsis, unspecified organism; R65.21 Severe sepsis with septic shock; J96.90 Respiratory failure, unspecified, unspecified whether with hypoxia or hypercapnia; N18.6 End stage renal disease; D61.818 Other pancytopenia; C79.51 Secondary malignant neoplasm of bone; C77.3 Secondary and unspecified malignant neoplasm of axilla and upper limb lymph nodes; C50.212 Malignant neoplasm of upper-inner quadrant of left female breast; D63.1 Anemia in chronic kidney disease; C50.912 Malignant neoplasm of unspecified site of left female breast; Z66 Do not resuscitate; Z99.81 Dependence on supplemental oxygen; J43.9 Emphysema, unspecified; K21.9 Gastro-esophageal reflux disease without esophagitis; Z79.899 Other long term (current) drug therapy
CPT/HCPCS: 36415; 36416; 36430; 71045; 80048; 80053; 80076; 81003; 81015; 82542; 82553; 83010; 83605; 83615; 84484; 85025; 85049; 85060; 85300; 85362; 85379; 85384; 85610; 85730; 86580; 86704; 86706; 86803; 86850; 86880; 86900; 86901; 87040; 87086; 87340; 90935; 93970; 94664; A4216; C1752; C1769; C1788; G0257; G0365; J0692; J0885; J1100; J1642; J1644; J2250; J2543; J2704; J2720; J2920; J3010; J3370; J7050; J7620; J9267; P9016; P9035; Q0162; Q4081